=== PATIENT | female | born 1955 | race Caucasian/White ===

== ENCOUNTER 2017-11-28 01:11 | Outpatient (CLI) | payer OTHER, SELFPAY ==
--- NOTE | 2017-11-28 09:15 | DI.MAMMO_ITS ---
SYMPTOM/DIAGNOSIS: SCREENING, [facility], Z00.00 MAMMOGRAMS: Mammograms were interpreted according to the usual protocol including computer analysis with CAD system, tomosynthesis and C view imaging. Comparison is made with prior examinations. Breast density, B. There is asymmetric breast tissue in the outer right breast seen on the craniocaudad view. This area should be further evaluated with a spot compression view. Ultrasound may be indicated at that time. No suspicious masses or microcalcifications are seen in the left breast. The skin and axilla are unremarkable. IMPRESSION: Additional views of the right breast as described above. Category 0. MQSA ASSESSMENT OF FINDINGS: Incomplete: Needs additional imaging evaluation. Category 0. Patient will receive a letter notifying them of these results. BI-RADS category B. There are scattered areas of fibroglandular density.
== END 2017-11-28 01:31 ==
PROVIDERS: PCP Family Medicine; Visit Provider Family Medicine
DX: Z00.00 Encounter for general adult medical examination without abnormal findings (principal); Z12.31 Encounter for screening mammogram for malignant neoplasm of breast; R92.8 Other abnormal and inconclusive findings on diagnostic imaging of breast
CPT/HCPCS: 77063; 77067

== ENCOUNTER 2017-12-10 00:50 | Outpatient (CLI) | payer OTHER, SELFPAY ==
--- NOTE | 2017-12-10 09:40 | DI.COMBO_ITS ---
SYMPTOM/DIAGNOSIS: F/U ASYMMETRIC BREAST TISSUE ON MAMMOGRAM RIGHT BREAST ADDITIONAL VIEWS AND RIGHT BREAST ULTRASOUND: Additional images are interpreted according to the usual protocol including tomosynthesis and 2D imaging. The compression spot film reveals no definite evidence of a mass. At ultrasound, no cyst or mass is seen. SUMMARY: No mass is identified. Category 1. Annual screening mammography is recommended. Breast density, Category B. MQSA ASSESSMENT OF FINDINGS: Negative. Category 1. Patient will receive a letter notifying them of these results. BI-RADS category B. There are scattered areas of fibroglandular density.
== END 2017-12-10 01:10 ==
PROVIDERS: PCP Family Medicine; Visit Provider Family Medicine
DX: Z12.31 Encounter for screening mammogram for malignant neoplasm of breast (principal); R92.8 Other abnormal and inconclusive findings on diagnostic imaging of breast; N64.59 Other signs and symptoms in breast
CPT/HCPCS: 76642; 77063; 77067

== ENCOUNTER 2018-03-20 10:15 | Outpatient (CLI) | payer OTHER, SELFPAY ==
--- NOTE | 2018-03-20 13:04 | DI.RAD_ITS ---
SYMPTOMS/DIAGNOSIS: UPPER BACK PAIN, M54.9, TINGLING DOWN BOTH ARMS AND SOME IN LEGS CERVICAL SPINE: Odontoid, AP, lateral and bilateral oblique views were obtained. The odontoid is intact. The lateral masses are well aligned. There is straightening of the normal cervical lordosis. This may be due to muscle spasm or patient positioning. At C5-C6, there is mild disc space narrowing. Endplate osteophytes are seen. At C6-C7, there is moderate disc space narrowing and endplate osteophytes are present. There is moderate narrowing of the left neural foramen at C5-C6 and mild narrowing on the left at C6-C7. On the right, there is mild narrowing of the neural foramen at both C5-C6 and C6-C7. No acute fractures or subluxations are seen. There is no prevertebral soft tissue swelling. IMPRESSION: Moderate degenerative changes of the cervical spine.
== END 2018-03-20 10:35 ==
PROVIDERS: PCP Family Medicine; Visit Provider Family Medicine
DX: M54.2 Cervicalgia (principal); M47.812 Spondylosis without myelopathy or radiculopathy, cervical region; R20.2 Paresthesia of skin
CPT/HCPCS: 72050

== ENCOUNTER 2018-03-26 00:47 | Outpatient (CLI) | payer OTHER, SELFPAY ==
--- NOTE | 2018-03-26 08:20 | DI.RAD_ITS ---
SYMPTOM/DIAGNOSIS: RADICULAR SYMPTOMS LOWER LIMBS M54.10 LUMBAR SPINE: There is a mild levoscoliosis centered at L3-4. There is asymmetric disc space narrowing on the right side at L3-4 and L4-5 causing the scoliosis. There is no evidence of compression fracture, spondylolysis or spondylolisthesis. The S-I joints and hip joints are unremarkable. There is a moderate to increased quantity of stool. A calcified uterine fibroid is seen. IMPRESSION: Degenerative disc changes at L3-4 and L4-5. Scoliosis.
== END 2018-03-26 01:07 ==
PROVIDERS: PCP Family Medicine; Visit Provider Family Medicine
DX: M54.16 Radiculopathy, lumbar region (principal); M51.16 Intervertebral disc disorders with radiculopathy, lumbar region; M41.86 Other forms of scoliosis, lumbar region
CPT/HCPCS: 72110

== ENCOUNTER 2018-04-16 00:17 | Outpatient (CLI) | payer OTHER, SELFPAY ==
[2018-04-16 14:50] LABS: CREATININE 0.82 mg/dL (0.55-1.02)
[2018-04-16] MEDS: Gadoterate meglumine 20 ML VIAL 15 ML IVP (15:21)
--- NOTE | 2018-04-16 15:33 | DI.MRI_ITS ---
SYMPTOM/DIAGNOSIS: PARESTHESIA HANDS, R20.2, FACIAL PARESTHESIA RT BRAIN MRI: MRI examination of the brain was performed according to the usual protocol. Additional post contrast axial and coronal T 1 weighted imaging was obtained as well. There is no mass lesion or enhancing lesion in the brain. There are a few scattered focal areas of abnormal signal in periventricular and subcortical white matter consistent with minimal microvascular ischemic changes. No other significant signal abnormality identified in the brain. The orbital and temporal bone structures appear intact as does the pituitary. There is normal flow void in the [place] vasculature. Diffusion weighted imaging shows no evidence of infarction. Susceptibility weighted imaging shows no evidence of intracranial hemorrhage. CONCLUSION: Brain MRI normal for age.
== END 2018-04-16 00:37 ==
PROVIDERS: PCP Family Medicine; Visit Provider Family Medicine
DX: R20.2 Paresthesia of skin (principal); M54.10 Radiculopathy, site unspecified
CPT/HCPCS: 36415; 70553; 82565

== ENCOUNTER 2018-06-18 08:13 | Outpatient (CLI) | payer OTHER, SELFPAY ==
[2018-06-18 11:46] LABS: HCT 41.7 % (36.0-46.0); HGB 14.1 g/dL (12.0-15.5); Mean Corp. HGB Concentration 33.8 g/dL (32.0-36.0); Mean Corpuscular Hemoglobin 30.3 pg (27.0-33.0); Mean Corpuscular Volume 89.7 fL (80-95); Mean Platelet Volume 10.3 fL (8.0-11.0); Platelet Count 264 x1000/uL (130-400); RBC 4.65 m/cumm (4.00-5.20); RBC Distribution Width 12.9 % (11.7-14.6); White Blood Cell Count 3.77 k/cumm (4.4-10.8)
[2018-06-18 12:11] LABS: Glucose 89 mg/dL (70-100); TSH (W/Ref FT4) 3.36 uIU/mL (0.358-3.74); Vitamin B12 617 pg/mL (193-986)
== END 2018-06-18 08:33 ==
PROVIDERS: PCP Family Medicine; Visit Provider Family Medicine
DX: R20.2 Paresthesia of skin (principal); D72.819 Decreased white blood cell count, unspecified
CPT/HCPCS: 36415; 82947; 85027; 82607; 84443

== ENCOUNTER 2018-07-02 09:35 | Outpatient (REF) | payer OTHER, SELFPAY ==
[2018-07-02 22:12] LABS: Absolute Basophil Count 0.04 k/cumm (0.0-0.2); Absolute Lymphocyte Count 1.22 k/cumm (1.2-3.4); Absolute Neutrophil Count 2.38 k/cumm (1.2-6.7); Eosinophils % 2.5; HCT 42.1 % (36.0-46.0); HGB 14.5 g/dL (12.0-15.5); Lymphocytes % 30.2; Mean Corp. HGB Concentration 34.4 g/dL (32.0-36.0); Mean Corpuscular Hemoglobin 30.7 pg (27.0-33.0); Mean Platelet Volume 10.5 fL (8.0-11.0); Monocytes % 7.4; Neutrophils % 58.9; Platelet Count 238 x1000/uL (130-400); RBC 4.73 m/cumm (4.00-5.20); RBC Distribution Width 12.7 % (11.7-14.6); White Blood Cell Count 4.04 k/cumm (4.4-10.8)
[2018-07-02 22:57] LABS: Folate > 20.0 ng/mL (8.6-20.0)
[2018-07-07 09:14] LABS: Methylmalonic Acid 0.21 nmol/mL (<=0.40)
== END 2018-07-02 09:55 ==
LOC: NCHCN 09:35
PROVIDERS: PCP Family Medicine; Visit Provider Family Medicine
DX: D72.819 Decreased white blood cell count, unspecified (principal); G62.9 Polyneuropathy, unspecified
CPT/HCPCS: 80186; 82746; 85025

== ENCOUNTER 2018-07-05 07:00 | Outpatient (REF) | payer OTHER, SELFPAY ==
[2018-07-09 10:58] LABS: Copper 24 Hr, U 53 mcg/24 h (<=60); Urine Volume 2000 mL
== END 2018-07-05 07:20 ==
LOC: NCHCN 07:00
PROVIDERS: PCP Family Medicine; Visit Provider Family Medicine
DX: D72.819 Decreased white blood cell count, unspecified (principal); G62.9 Polyneuropathy, unspecified
CPT/HCPCS: 81050; 82525

== ENCOUNTER 2018-12-14 00:40 | Outpatient (CLI) | payer OTHER, SELFPAY ==
--- NOTE | 2018-12-14 09:06 | DI.MAMMO_ITS ---
EXAM: MAMMO SCREENING CLINICAL HISTORY: SCREENING, [facility], Z00.00. TECHNIQUE: Mammograms were interpreted according to the usual protocol including computer analysis w [employer] system, tomosynthesis and C-view imaging. FINDINGS: The breast tissue is of moderate radiodensity. There is no evidence of a mass and there are no suspi cious calcifications. There has been no significant interval change when compared with prior images. IMPRESSION: No evidence of malignancy. Category 1. Annual screening mammography is recommended. Breast density, c ategory B. BI-RADS Cat 1 - Negative. Breast Density - Category B - Scattered areas of fibroglandular density.
== END 2018-12-14 01:00 ==
PROVIDERS: PCP Family Medicine; Visit Provider Family Medicine
DX: Z00.00 Encounter for general adult medical examination without abnormal findings (principal); Z12.31 Encounter for screening mammogram for malignant neoplasm of breast
CPT/HCPCS: 77063; 77067

== ENCOUNTER 2019-02-09 11:50 | Outpatient (REF) | payer OTHER, SELFPAY ==
--- NOTE | 2019-02-09 09:45 | PAPFT_PTH ---
PATIENT: Amanda Rudolph LOC: [facility] U#:[id number] AGE/SX: 63/F ROOM: RE02/09/[address]: Johana Orona V : 1955 BED: DIS: 02/09/2019 SPEC #: [id number] RECD: 02/10/19 12:51 STATUS: HANSA REDana #: [id number] BATSHEVA: 02/09/19 09:[address]: Johana Orona V DEPT: [facility] Cytology RECD BY: Sherin Esposito Tissues: 1 - CX/ENDOCX FOR PAP SMEARS Procedures: PAP THIN PREP/[facility] Screening HPV DNA PROBE Comments: [id number]
== END 2019-02-09 12:10 ==
LOC: NCHCN 11:50
PROVIDERS: PCP Family Medicine; Visit Provider Family Medicine
DX: Z12.4 Encounter for screening for malignant neoplasm of cervix (principal); Z01.419 Encounter for gynecological examination (general) (routine) without abnormal findings
CPT/HCPCS: 88142; 87624

== ENCOUNTER 2021-02-15 15:33 | Outpatient (REF) | payer OTHER, SELFPAY ==
[2021-02-15 19:35] LABS: HCT 39.4 % (36.0-46.0); HGB 12.7 g/dL (11.2-15.7); MCH 28.5 pg (27.0-33.0); MCHC 32.2 % (32.0-36.0); MCV 88.3 fL (80-95); MPV 10.2 fL (8.0-11.0); Platelet Count 291 10^3/uL (130-400); RBC 4.46 10^6/uL (3.93-5.22); RDW 12.7 % (11.7-14.6); WBC 4.09 10^3/uL (4.4-10.8)
[2021-02-15 19:55] LABS: Anion Gap 7.3 mmol/L (3-11); BUN 18 mg/dL (7-18); CO2 29.7 mmol/L (21.0-32.0); CREATININE 0.9 mg/dL (0.55-1.02); Calcium 8.9 mg/dL (8.5-10.1); Calculated LDL 93 mg/dL (<100); Chloride 104 mmol/L (98-107); Cholesterol 197 mg/dL (<200); Glucose 77 mg/dL (74-106); HDL Cholesterol 90 mg/dL (40-60); Potassium 4.3 mmol/L (3.5-5.1); Sodium 141 mmol/L (136-145); TSH (W/Ref FT4) 2.08 uIU/mL (0.36-3.74); Triglyceride 73 mg/dL (<150)
== END 2021-02-15 15:34 | disposition home or self-care (01) ==
LOC: NCHCN 15:33
PROVIDERS: PCP Family Medicine; Visit Provider Family Medicine
DX: Z00.00 Encounter for general adult medical examination without abnormal findings (principal)
CPT/HCPCS: 80048; 80061; 85027; 84443

== ENCOUNTER 2021-03-16 01:10 | Outpatient (CLI) | payer OTHER, SELFPAY ==
--- NOTE | 2021-03-16 08:25 | DI.MAMMO_ITS ---
Exam(s) MAMMO SCREENING EXAM: MAMMO SCREENING CLINICAL HISTORY: SCREENING, [facility], Z00.00 TECHNIQUE: Mammograms were interpreted according to the usual protocol including computer analysis w [employer]o CAD system, tomosynthesis and C-view imaging. COMPARISON: 2012 through 2018 FINDINGS: The breasts are composed of scattered fibroglandular densities, Breast Density category B. No suspicious masses or suspicious microcalcifications are seen. No skin thickening or abnormal axillary lymph nodes are seen. There has been no significant change from prior exams. IMPRESSION: BI-RADS Category 1, Negative mammogram Yearly screening mammography is recommended. Breast Density - Category B, scattered fibroglandular densities. A negative radiographic report should not delay biopsy if a dominant or clinically suspicious mass is present. Up to ten percent of cancers are not identified on mammography. A negative report may reinforce clinical impression. Adenosis and dense breasts may obscure an underlying neoplasm. False positive reports average 6 to 10%. Patient will receive a letter notifying them of these results.
--- NOTE | 2021-03-16 08:30 | DI.DEXA_ITS ---
Exam(s) XR DEXA BONE DENSITY W/WO CONNOR EXAM: XR DEXA BONE DENSITY W/WO CONNOR CLINICAL HISTORY: [facility] Z00.00,screening for osteoporosis postmenopausal,z78.0 TECHNIQUE: idemama C densitometer COMPARISON: 2003 through 2016 FINDINGS: Lateral view of the thoracic and lumbar spine shows no evidence of compression fractures. Bone mineral density measurements of the lumbar spine correspond to a total T-score of -0.2, in the normal range. This is not changed from 2017. This is a 3.9 percent decrease in total bone density c ompared to 2003. Bone mineral density measurements of the left hip correspond to a total T-score of -1.4. The femora l neck T-score is -1.8, in the osteopenic range. This represents a 2.5 percent decrease from 2016. 10.2 percent decrease compared to 2003.. The left forearm bone mineral density measurements correspond to a T-score of the distal 3rd of -0.8, in the normal range. This represents a 4.6 percent decrease from 2017 and a 5.6 percent decrease fr om 2013. . IMPRESSION: Normal bone mineral density of the lumbar spine and left forearm. Osteopenia the left hip
--- NOTE | 2021-03-16 09:00 | DI.RAD_ITS ---
Exam(s) XR SHOULDER RT COMPLETE 2+V EXAM: XR SHOULDER RT COMPLETE 2+V CLINICAL HISTORY: RT SHOULDER PAIN, M25.511. TECHNIQUE: 2D digital imaging was performed. COMPARISON: MR MRI - L UPPER JOINT WO CONT from 04/07/2015 FINDINGS: BONES: No acute fracture is present. No bony destructive lesion is seen. JOINTS: No dislocation present. Minimal spurring at the glenoid. Minimal spurring at the AC joint. SOFT TISSUE: Normal. IMPRESSION: Mild degenerative changes. DATA REPOSITORY: RADIATION DOSE DELIVERED:
== END 2021-03-16 01:30 ==
PROVIDERS: PCP Family Medicine; Visit Provider Family Medicine
DX: M25.511 Pain in right shoulder (principal); M19.011 Primary osteoarthritis, right shoulder; Z00.00 Encounter for general adult medical examination without abnormal findings; M85.88 Other specified disorders of bone density and structure, other site; Z78.0 Asymptomatic menopausal state; Z12.31 Encounter for screening mammogram for malignant neoplasm of breast
CPT/HCPCS: 77063; 77067; 77080; 73030

== ENCOUNTER 2021-05-12 14:39 | Outpatient (REF) | payer OTHER, SELFPAY ==
--- NOTE | 2021-05-12 | DI.RAD_ITS ---
Exam(s) XR KNEE LT 3V AP,LAT,LEX EXAM: XR KNEE LT 3V AP,LAT,LEX CLINICAL HISTORY: LEFT KNEE PAIN. TECHNIQUE: 2D digital imaging was performed. COMPARISON: Prior x-rays March 2014 FINDINGS: 3 views There is no evidence of fracture nor obvious joint effusion. Bone density is normal. No osseous les ions. However, on the tunnel view there is a subtle subarticular lucency in the medial femoral condy le. Cannot exclude the possibility of an osteochondral defect at this level. There is no joint spac e narrowing. No osteophytes. IMPRESSION: No fractures nor obvious joint effusion. Possible small osteochondral defect on the inferior articular surface of the medial femoral condyle. DATA REPOSITORY: RADIATION DOSE DELIVERED:
--- NOTE | 2021-05-12 15:24 | DI.VRAD_ITS ---
PROCEDURE INFORMATION: Exam: XR Left Knee Exam date and time: 05/12/2021 2:42 PM Age: 66 years old Clinical indication: Pain; Knee; Left TECHNIQUE: Imaging protocol: XR Left knee. Views: 3 views. COMPARISON: No relevant prior studies available. FINDINGS: Bones/joints: Osseous anatomic alignment is well preserved. No acutely displaced fracture or dislocation. Joint spaces are well preserved. Small marginal osteophytes appreciated in the bilateral tibiofemoral compartment and patellofemoral compartment. There is no evidence of a joint effusion. Soft tissues: There is no significant soft tissue swelling. IMPRESSION: 1. Minimal tricompartmental osteoarthritis. 2. No acute skeletal pathology. Dictated and Authenticated by: Ruel Martin MD. Ordering:IHSAN Whitlock MD
== END 2021-05-12 14:59 ==
LOC: DI 14:39
PROVIDERS: PCP Family Medicine; Visit Provider Nurse Practitioner Family
DX: M25.562 Pain in left knee (principal); M17.12 Unilateral primary osteoarthritis, left knee
CPT/HCPCS: 73562

== ENCOUNTER 2022-03-22 00:16 | Outpatient (CLI) | payer OTHER, SELFPAY ==
--- NOTE | 2022-03-22 | DI.MAMMO_ITS ---
Exam(s) MAMMO SCREENING EXAM: MAMMO SCREENING CLINICAL HISTORY: SCREENING, Z12.31 TECHNIQUE: Bilateral full field digital CC and MLO mammographic images were obtained with 3D tomosyn thesis and utilizing computer aided detection (CAD). COMPARISON: Available for comparison. FINDINGS: Masses/Architectural Distortion: None seen. Microcalcifications: No suspicious pleomorphic-type are seen. Skin Thickening/Nipple Retraction: None. IMPRESSION: 1. No significant interval change with no specific features of malignancy noted. 2. Unless there is more urgent need, screening mammography is recommended, as per [employer] guidelines. BI-RADS Category 1 - Negative Breast Density - Category B - Scattered areas of fibroglandular density Breast density category C or D implies that the patient has dense breast tissue. Dense breast tissue is very common and is not abnormal but dense breast tissue can make it harder to find cancer on a ma mmogram. Also, dense breast tissue may increase their breast cancer risk. This information about the result of the mammogram report was provided to the patient to raise their awareness. Use this report when you speak with the patient about their risks for breast cancer, which includes their family hist ory. At that time, you may recommend for more screening tests (Ultrasound or MRI) as they might be us eful based on their risk. A negative radiographic report should not delay biopsy if a dominant or clinically suspicious mass is present. Up to ten percent of cancers are not identified on mammography. A negative report may reinforce clinical impression. Adenosis and dense breasts may obscure an underlying neoplasm. False positive reports average 6 to 10%. Patient will receive a letter notifying them of these results.
== END 2022-03-22 00:36 ==
LOC: DI 00:18
PROVIDERS: PCP Family Medicine; Visit Provider Family Medicine
DX: Z12.31 Encounter for screening mammogram for malignant neoplasm of breast (principal)
CPT/HCPCS: 77063; 77067

== ENCOUNTER → 2022-12-26 10:55 | Outpatient (BNVA) | payer MEDICARE, SELFPAY | PROVIDERS: PCP Family Medicine; Referring Provider Family Medicine; Visit Provider Physical Therapy Assistant | DX: Z12.11 Encounter for screening for malignant neoplasm of colon (principal); Z86.010 Personal history of colon polyps ==

== ENCOUNTER 2023-01-09 06:16 | Day surgery (SDC) | payer MEDICARE, SELFPAY ==
--- NOTE | 2023-01-08 14:04 | W.PM.DSUDISC ---
Date of service: 01/09/23 Time of Service: 08:02 Discharge Plan Disposition Patient Disposition: Home Condition: Good Discharge Details Reason For Visit: Screening colonoscopy Attending Provider: Jonathan Das Primary Care Provider: Johana Orona V Home Meds and New Rx's Prescriptions: Continued triamcinolone acetonide 0.025 % cream 1 applic TP BID calcitriol 3 mcg/gram ointment 1 applic topical BID osteoprime 1 tab PO DAILY ibuprofen [Advil Liqui-Gel] 200 MG capsule 400 mg PO Q4H PRN Discontinued bisacodyl [Dulcolax (bisacodyl)] 5 mg tablet,delayed release (DR/EC) 5 mg PO ONCE Qty: 4 0RF Rx Instructions: Take per colonoscopy instructions provided by ordering providers office polyethylene glycol 3350 17 gram/dose powder 17 g PO ONCE Qty: 238 0RF Rx Instructions: Take per colonoscopy instructions provided by ordering providers office Discharge Instructions Instructions: Diverticulosis (GEN), Colorectal Polyps (GEN), Diverticulosis Diet (GEN) Additional Instructions: Amanda, we were able to complete your colonoscopy today without any difficulty. Your prep was excellent. I did find 1 small polyp, and I removed it completely. Incidentally, I also found some diverticulosis. These are weak spots in the colon wall that many patients accumulate with age. I have attached some general information here regarding management of diverticular disease. I will be in touch when I have the results of the polyp analysis with my recommendations for your next colonoscopy. 1. If tolerated, consume a soft, low fiber diet for 1-2 days. 2. Do not drive, drink alcohol, operate machinery, make critical decisions, or do activities that require coordination or balance for 24 hours. 3. Because air was put into your colon during the procedure, expelling air from your rectum (passing gas or farting) is normal. 4. You may not have a bowel movement for 1-3 days because of the colonoscopy prep. This is normal. 5. Go directly to the emergency room if you notice any of the following: Develop chills (warm to touch), or if you have a thermometer and your temperature is above 101 Difficulty breathing or difficultly swallowing Persistent vomiting Severe abdominal pain, other than gas cramps Severe chest pain Black, tarry stools Any bleeding ? exceeding one tablespoon 6. Call your physician if the site where your intravenous was started becomes red, swollen, painful, and warm to touch. 7. Your physician has reviewed your pre-procedure medications. Please continue to take those medications as previously ordered. You will be given specific information/education regarding any changes to your medications before leaving. Activity:: Activity as Tolerated Diet:: As Tolerated Discharge Orders Discharge Orders: Discharge Order (Routine); Ordered 01/08/23 Ordered By: Jonathan Das DS: Diagnosis Discharge Diagnosis (1) Screen for colon cancer: Status: Acute Asessment and Plan: Follow-up on polypectomy results
--- NOTE | 2023-01-08 14:06 | W.COLOREPORT ---
Date of service: 01/09/23 Time of Service: 08:04 Colonoscopy Report Date of procedure: 01/09/23 Pre-op diagnosis general: Screening colonoscopy Post-op diagnosis procedure note: other (Diverticulosis, colon polyp) Procedure: Colonoscopy with polypectomy Surgeon: Jonathan Das Anesthesia Type: General:No Airway Estimated blood loss (mL): 5 Pathology: other (0.25 cm polyp at 60 cm from the anus) Complications: None Disposition: same day Indications: Amanda is a 67-year-old woman with a past history of adenomatous polyps, who needs her next screening colonoscopy Prep: Miralax/Dulcolax Procedure Start Time: 07:35 Procedure End Time: 07:52 Retraction Time: 14 Findings: Sigmoid diverticulosis; colon polyp at 60 cm Procedure Description: After the induction of monitored anesthetic care, and with the patient in left lateral decubitus position, I began by performing an external anorectal exam.? Perineum and skin were normal, as was the anal verge.? There was no not evidence of external hemorrhoids.? Next, I performed a digital rectal exam.? I did appreciate any abnormal findings.? Next, I advanced a colonoscope into the rectal vault.? I performed retroflexion.? This was normal.? Using insufflation, I then advanced the colonoscope beyond the rectal folds and into the sigmoid colon before advancing towards the cecum.? There was some sigmoid diverticulosis.? The scope was noted to be in the cecum by identification of the ileocecal valve and appendiceal orifice.? I then began withdrawing the colonoscope using repeated irrigation as necessary for full evaluation of the colonic mucosa. Around 60 cm from the anal verge I identified a 0.25 cm polyp. ?It appeared sessile in character. ?I was able to remove this with a cold forcep polypectomy. ?I examined the site, and there was minimal bleeding. ?Once this was completed, I continued to withdraw the scope and examine the remainder of the colonic mucosa. ?Once the scope was withdrawn to the level of the rectum, great care was taken to examine portions of the rectal folds.? Finally, the scope was withdrawn and the patient was brought to the same-day surgery recovery unit as the anesthetic wore off. ?The findings and instructions were shared with the patient prior to discharge. [place] Bowel Prep [place] Bowel Prep Right Colon: 3 Left Colon: 3 Transverse Colon: 3 Total Score: 9
[2023-01-09 06:30] VITALS: BP 109/84; PULSE 76; RESP 16; TEMP 36.5; O2SAT 99
[2023-01-09] MEDS: Lactated Ringers 1,000 ML 80 ML IV (06:53)
--- NOTE | 2023-01-09 06:58 | W.ANESPRE ---
General Info Date of Service Date Performed: 01/09/23 Height: 5 ft 10.5 in Weight: 70.7 kg Body Mass Index (BMI): 22.0 Surgical Procedure: Operation Date: 01/09/23 07:35 Proposed Procedure Side Surgeon maicol Das MD Meds Allergies and Home Medications Allergies Allergy/AdvReac Type Severity Reaction Status Date / Time acetaminophen Allergy Verified 01/09/23 06:43 Home Medication Medication Instructions Recorded Osteoprime 1 tab PO DAILY 11/09/12 ibuprofen 200 mg capsule (Advil 400 mg PO Q4H PRN 05/22/15 Liqui-Gel) triamcinolone acetonide 0.025 % 1 applic topical BID 03/31/18 topical cream calcitriol 3 mcg/gram topical 1 applic topical BID 12/26/22 ointment Current Visit Medications: Current Medications Generic Name Dose Route Start Last Admin Trade Name Freq PRN Reason Stop Dose Admin Hyoscyamine Sulfate 0.125 mg 01/08/23 14:06 Hyoscyamine 0.125 Mg Sl/Oral/Chew SL 02/07/23 14:05 DIRECTED PRN Ringer's Solution 1,000 mls @ 80 mls/hr 01/09/23 06:00 01/09/23 06:53 IV 01/23/23 23:59 80 mls/hr INFUSION KIM Administration IV Miscellaneous Supplies 1 each 01/09/23 06:00 Iv Access IV 01/23/23 23:59 DIRECTED KIM Ondansetron HCl 4 mg 01/08/23 14:06 Ondansetron 4 Mg/2 Ml Vial IVP 02/07/23 14:05 Q4H PRN PRN Nausea / Vomiting Sodium Chloride 0 ml 01/09/23 06:00 Normal Saline Flush 10 Ml Syr IV 01/23/23 23:59 PRN PRN Sodium Chloride 0 ml 01/09/23 06:00 Normal Saline 10 Ml Vial IJ 01/23/23 23:59 DIRECTED PRN Sterile Water 0 ml 01/09/23 06:00 Water,Injection,Sterile 10 Ml Vial IJ 01/23/23 23:59 DIRECTED PRN PFSH Active Problems Active Problems: Problem Status Onset Code Primary osteoarthritis of both first carpometacarpal joints 06/04/17 M18.0 Tendinitis of left rotator cuff 01/18/15 M75.82 Tubular adenoma of colon 03/03/17 D12.6 Medical History Medical History Knee pain, bilateral Peripheral neuropathy Leucopenia Rotator cuff syndrome of left shoulder Menopausal syndrome [place] of toe Heart murmur, systolic PCP had ECHO in 2016. Pt was reminded that due to mild TR and MR per anesthesia will request updated ECHO for any upcoming procedures (01/08/23) Psoriasiform dermatitis Shoulder pain, right Back pain Radicular syndrome of lower limbs Paresthesia of hand, bilateral tubulovillous adenoma irregular heart beat diverticulosis Small bowel obstruction Osteopenia Surgical History Surgical History Tonsillectomy Colonoscopy - MAC (03/03/17) Colonoscopy - IV Sedation (~2010) tubulovillous adenoma Appendectomy Tobacco Smoking/Tobacco Use Status: Former Tobacco Use Alcohol Alcohol Intake: current Alcohol intake frequency: 0-2 drinks per day Alcohol type: wine Substance Use Substance use: Never Substance use type: does not use Vital Signs and Lab Results Vital Signs Most Recent Vital Signs in EMR: Most Recent Vital Signs Temp Pulse Resp BP Pulse Ox 36.5 C 76 16 109/84 99 01/09/23 06:30 01/09/23 06:30 01/09/23 06:30 01/09/23 06:30 01/09/23 06:30 Lab Results Blood Type / Crossmatch: No Data to Display Complete Blood Count: No Data to Display Complete Metabolic Panel: No Data to Display Liver Function Panel: No Data to Display Coagulation Panel: No Data to Display Cardiac Panel: No Data to Display Arterial Blood Gas: No Data to Display Venous Blood Gas: No Data to Display Pancreas Panel: No Data to Display Thyroid Panel: No Data to Display Infectious Disease: No Data to Display Blood Cultures: No Data to Display Toxicology Panel: No Data to Display Imaging and Studies Imaging and Studies Study information below may be from another EMR and interpreted by another provider. Please see original notes in EMR for more complete details. Echocardiogram Summary: Patient Name: BETH JUAREZ Unit #: [id number] Loc: DI Ordering Provider: JOHANA SINGER M.D. Status: REG [facility] Primary Care Provider: JOHANA SINGER M.D. Date of Exam: 11/03/15 Sex: F : 1955 Age: 60 Exam(s) [id number] US:Echocardiogram Heart *[facility]* *[facility]* [address] [place] [address] Date of study: 11/03/2015 Transthoracic Echocardiography M-mode, complete 2D, complete spectral Doppler, and color Doppler *STUDY CONCLUSIONS* Summary: 1. Left ventricle: The cavity size was normal. Wall thickness was normal. Systolic function was normal. The estimated ejection fraction was 60%. Wall motion was normal; there were no regional wall motion abnormalities. 2. Aortic valve: Trileaflet; normal thickness leaflets. Transvalvular velocity was within the normal range. There was no stenosis. There was no significant regurgitation. 3. Mitral valve: Moderately thickened leaflets. No echocardiographic evidence for prolapse. There was mild regurgitation. 4. Left atrium: The atrium was normal in size. 5. Right ventricle: The cavity size was normal. Wall thickness was normal. Systolic function was normal. 6. Tricuspid valve: Structurally normal valve. There was mild regurgitation. 7. Pulmonary arteries: Pulmonary systolic pressure was within the normal range. 8. Pericardium, extracardiac: There was no pericardial effusion. 9. Baseline ECG: Normal sinus rhythm. *PATIENT PRESENTATION* Height: 180.3cm ((71in) ) S/D Pressure: Weight: 70.3kg ((154.7lb) ) BSA: 1.87m^2 Test start time: 11:05 AM. Test stop time: 12:10 PM. ORDERING Ankush Velázquez MD REFERRING Johana Singer PERFORMING Unknown PERFORMING [facility] PERFORMING Corrina Mascorro *PROCEDURE DATA* Procedure information: [id number] This study was interpreted by [facility]. Pertinent images and digital data are archived for permanent storage and are available for subsequent review. Study status: Routine. Transthoracic echocardiography. M-mode, complete 2D, complete spectral Doppler, and color Doppler. A Transthoracic Echocardiogram was performed. Scanning was performed from the parasternal, apical, subcostal, and suprasternal notch acoustic windows. Images were obtained using an Fusion Sheep cardiac ultrasound machine. Study completion: The patient tolerated the procedure well. History: PMH: Heart murmur. *CARDIAC ANATOMY* Left ventricle: The cavity size was normal. Wall thickness was normal. Systolic function was normal. The estimated ejection fraction was 60%. Wall motion was normal; there were no regional wall motion abnormalities. Aortic valve: Trileaflet; normal thickness leaflets. Mobility was not restricted. Doppler: Transvalvular velocity was within the normal range. There was no stenosis. There was no significant regurgitation. VTI ratio of LVOT to aortic valve: 0.62. Indexed valve area (VTI): 1.1cm^2/m^2. Peak velocity ratio of LVOT to aortic valve: 0.66. Indexed valve area (Vmax): 1.1cm^2/m^2. Mean gradient (S): 3mm Hg. Aorta: Aortic root: The aortic root was normal in size. Mitral valve: Moderately thickened leaflets. No echocardiographic evidence for prolapse. Doppler: There was mild regurgitation. Valve area by pressure half-time: 3.1cm^2. Indexed valve area by pressure half-time: 1.7cm^2/m^2. Left atrium: The atrium was normal in size. Right ventricle: The cavity size was normal. Wall thickness was normal. Systolic function was normal. Pulmonic valve: Doppler: Transvalvular velocity was within the normal range. There was no evidence for stenosis. There was no regurgitation. Tricuspid valve: Structurally normal valve. Doppler: There was mild regurgitation. Pulmonary artery: Pulmonary systolic pressure was within the normal range. Right atrium: The atrium was normal in size. Pericardium: There was no pericardial effusion. Systemic veins: Inferior vena cava: The vessel was normal in size. The respirophasic diameter changes were in the normal range (greater than or equal to 50%). Baseline ECG: Normal sinus rhythm. Measurements Left ventricle Value Reference LV ID, ED, PLAX 4.5 cm 3.5 - 6.0 LV fx shortening, PLAX chordal (L) 28 % >=29 LV ID, ED, PLAX maximal (L) 0.8 cm 3.6 - 5.4 LV end-diastolic volume 90 ml LV end-systolic volume 41 ml LV ejection fraction 55 % LV ejection fraction, 1-p A2C 71 % LV ejection fraction, 2-p 63 % Ventricular septum Value Reference IVS thickness, ED, PLAX 0.9 cm LVOT Value Reference LVOT ID, A-P 2.0 cm LVOT area 3.2 cm^2 LVOT peak velocity, S 0.83 m/sec LVOT VTI, S 17.1 cm LVOT mean gradient, S 1.2 mm Hg Aortic valve Value Reference Aortic valve peak velocity, S 1.3 m/sec Aortic mean gradient, S 3 mm Hg VTI ratio, LVOT/AV 0.62 Velocity ratio, peak, LVOT/AV 0.66 Aorta Value Reference Aortic root ID, ED 3.3 cm Left atrium Value Reference LA area, ES, A4C 19 cm^2 8.8 - 23.4 LA volume/bsa, ES, 1-p A2C 28 ml/m^2 Mitral valve Value Reference Mitral E-wave peak velocity 0.63 m/sec Mitral A-wave peak velocity 0.35 m/sec Mitral pressure half-time 70 ms Mitral E/A ratio, peak 1.79 Mitral valve area, PHT, DP 3.1 cm^2 Tricuspid valve Value Reference Tricuspid regurg peak velocity 1.8 m/sec Tricuspid peak RV-RA gradient 13.7 mm Hg Right atrium Value Reference RA area, ES, A4C 12 cm^2 8.3 - 19.5 RA volume/bsa, ES, 1-p A4C 13 ml/m^2 Legend: (L) and (H) renetta values outside specified reference range. I have personally reviewed the images and have reviewed and edited the reported findings. Electronically signed by Renetta Wild MD 11/03/2015 12:45 Ordering provider: JOHANA SINGER M.D. CC: This is privileged, confidential information intended only for the provider named. Any use or distribution by any person other than this provider is strictly prohibited. If you receive this report in error, please notify us immediately at [phone] and return the original report to us at the address above. Thank-you. Anesthesia Assessment and Plan Anesthesia History Personal History: No History of Anesthesia Complications Family History: No Family History of Anesthesia Complications Exercise Tolerance Exercise Tolerance: Metabolic Equivalents>4 Pertinent Negatives Pertinent Negatives: No Symptoms of GERD, No Major Cardiovascular Symptoms or Complaints, No Major Pulmonary Symptoms or Complaints and No History of CVA/TIA Cardiac & Pulmonary Exam Cardiac Exam: Heart Murmur Present Pulmonary Exam: Clear Bilateral Breath Sounds Implantable Cardiac Device Does patient have a Pacemaker or an ICD?: No Airway Exam Known Difficult Airway: No Mallampati Class: 2 Mouth Opening: Normal (> 3cm) Thyromental Distance: Less than 3 cm Neck Range of Motion: Full ROM Neck Circumference: Normal Teeth Condition: Normal Dentition and Generalized Poor Dentition ASA Classification ASA Score: ASA 2 Emergency Case?: No NPO Status NPO Status: NPO Clears >2 hours, Solids >8 hours Anesthesia Plan Resuscitation Status: Full Code Anesthesia Technique: General Anesthesia Airway Planned: Natural Airway Monitors Used: Standard Monitors Preoperative Comments:: Discussed cardiac history at length. Discussed that patient will not be able to have any further anesthetics without an updated ECHO.
--- NOTE | 2023-01-09 07:47 | BOWEL_PTH ---
PATIENT: Amanda Rudolph LOC: [facility] U#:[id number] AGE/SX: 67/F ROOM: RE01/09/[address]: Jonathan Das MD : 1955 BED: DIS: 01/09/2023 SPEC #: [id number] RECD: 01/09/23 12:15 STATUS: HANSA RE #: [id number] BATSHEVA: 01/09/23 07:[address]: Jonathan Das DEPT: Surgical Specimen RECD BY: Sherin Esposito ENTERED: 01/09/23 12:15 SP TYPE: Bowel OTHR DR: Johana Orona V Tissues: 1 - BIOPSY BOWEL Procedures: GROSS AND MICRO LEVEL 4 Comments: [id number]
[2023-01-09 07:58] VITALS: BP 97/77; PULSE 61; RESP 18; TEMP 36.5; O2SAT 98
[2023-01-09 08:01] VITALS: BMI 22.0
[2023-01-09 08:28] VITALS: BP 116/74; PULSE 56; RESP 16; TEMP 36.4; O2SAT 99
--- NOTE | 2023-01-09 08:30 | W.ANESPOSTOP ---
Postoperative Evaluation Date, Time and Location Date Performed: 01/09/23 Time Performed: 08:22 Patient Location: Day Surgery Unit Vital Signs Most Recent Imported Vital Signs: Most Recent Vital Signs Temp Pulse Resp BP Pulse Ox 36.5 C 61 18 97/77 L 98 01/09/23 07:58 01/09/23 07:58 01/09/23 07:58 01/09/23 07:58 01/09/23 07:58 Pain Score Most Recent Pain Score: Most Recent Pain Score Pain Level 0 01/09/23 07:58 Assessment Mental Status: Awake (Alert & Oriented to Patient Baseline) Airway and Respiratory Function: Patent airway with normal (patient baseline) respiratory exam Cardiovascular Function: Hemodynamically Stable Hydration Status: Adequately Hydrated Nausea & Vomiting: No Nausea or Vomiting Pain: Pt. Denies Any Pain Peripheral Nerve Block: Patient did not receive a nerve block
== END 2023-01-09 08:55 | disposition home or self-care (01) ==
LOC: SUR 06:16
PROVIDERS: PCP Family Medicine; Visit Provider Surgery
PROC: 0DJD8ZZ Inspection of Lower Intestinal Tract, Via Natural or Artificial Opening Endoscopic (ICD-10-PCS; CPT 45378; principal; 2023-01-09 07:30)
DX: Z12.11 Encounter for screening for malignant neoplasm of colon (principal); Z86.010 Personal history of colon polyps; D12.4 Benign neoplasm of descending colon; K57.30 Diverticulosis of large intestine without perforation or abscess without bleeding
CPT/HCPCS: 45380; 88305

== ENCOUNTER 2023-03-27 12:54 | Outpatient (REF) | payer MEDICARE, SELFPAY ==
[2023-03-27 15:46] LABS: HCT 43.5 % (36.0-46.0); HGB 14.8 g/dL (11.2-15.7); MCH 29.9 pg (27.0-33.0); MCV 88 fL (80-95); MPV 9.6 fL (8.0-11.0); Platelet Count 300 10^3/uL (130-400); RBC 4.95 10^6/uL (3.93-5.22); RDW 12.6 % (11.7-14.6); RDW-SD 41.1 fL; WBC 4.55 10^3/uL (4.4-10.8)
[2023-03-27 16:13] LABS: Hemoglobin A1C 5.6 % (<5.7)
[2023-03-27 16:28] LABS: Anion Gap 6.4 mmol/L (3-11); BUN 25 mg/dL (7-18); CO2 29.6 mmol/L (21.0-32.0); CREATININE 0.9 mg/dL (0.55-1.02); Calcium 9.4 mg/dL (8.5-10.1); Chloride 106 mmol/L (98-107); Estimated GFR 70.95 (mL/min/1.73m2); Glucose 84 mg/dL (74-106); Potassium 4.3 mmol/L (3.5-5.1); Sodium 142 mmol/L (136-145); TSH 2.26 uIU/mL (0.36-3.74); Vitamin B12 840 pg/mL (193-986)
== END 2023-03-27 12:55 | disposition home or self-care (01) ==
LOC: NCHCN 12:54
PROVIDERS: PCP Family Medicine; Visit Provider Family Medicine
DX: Z00.00 Encounter for general adult medical examination without abnormal findings (principal)
CPT/HCPCS: 80048; 85027; 82607; 83036; 84443

== ENCOUNTER → 2023-04-14 04:10 | Outpatient (CLI) | payer MEDICARE, SELFPAY ==
--- NOTE | 2023-04-14 | DI.MAMMO_ITS ---
Exam(s) MAMMO SCREENING EXAM: MAMMO SCREENING CLINICAL HISTORY: SCREENING, Z12.31 TECHNIQUE: Bilateral full field digital CC and MLO mammographic images were obtained with 3D tomosyn thesis and utilizing computer aided detection (CAD). COMPARISON: Available for comparison. FINDINGS: Masses/Architectural Distortion: None seen. Microcalcifications: No suspicious pleomorphic-type are seen. Skin Thickening/Nipple Retraction: None. IMPRESSION: 1. No significant interval change with no specific features of malignancy noted. 2. Unless there is more urgent need, screening mammography is recommended, as per [employer] guidelines. BI-RADS Category 1 - Negative Breast Density - Category B - Scattered areas of fibroglandular density Breast density category C or D implies that the patient has dense breast tissue. Dense breast tissue is very common and is not abnormal but dense breast tissue can make it harder to find cancer on a ma mmogram. Also, dense breast tissue may increase their breast cancer risk. This information about the result of the mammogram report was provided to the patient to raise their awareness. Use this report when you speak with the patient about their risks for breast cancer, which includes their family hist ory. At that time, you may recommend for more screening tests (Ultrasound or MRI) as they might be us eful based on their risk. A negative radiographic report should not delay biopsy if a dominant or clinically suspicious mass is present. Up to ten percent of cancers are not identified on mammography. A negative report may reinforce clinical impression. Adenosis and dense breasts may obscure an underlying neoplasm. False positive reports average 6 to 10%. Patient will receive a letter notifying them of these results.
== END ==
PROVIDERS: PCP Family Medicine; Visit Provider Family Medicine
DX: Z12.31 Encounter for screening mammogram for malignant neoplasm of breast (principal)
CPT/HCPCS: 77063; 77067

== ENCOUNTER 2023-05-05 03:07 | Outpatient (CLI) | payer MEDICARE, SELFPAY ==
[2023-05-06 12:09] LABS: Albumin 61.1 % (55.8-66.1); Albumin g/dL 4.3 g/dL (3.6-5.2)
[2023-05-08 08:43] LABS: Pyridoxal 5-Phosphate (PLP), P 77 mcg/L (5-50)
[2023-05-09 08:22] LABS: Thiamine (Vitamin B1), WB 184 nmol/L (70-180)
== END 2023-05-05 03:08 | disposition home or self-care (01) ==
LOC: LBO 03:07
PROVIDERS: PCP Family Medicine; Visit Provider Family Medicine
DX: G62.9 Polyneuropathy, unspecified (principal)
CPT/HCPCS: 36415; 84165; 84207; 84425

== ENCOUNTER 2023-08-16 10:00 | Outpatient (REF) | payer MEDICARE, SELFPAY | END 2023-08-16 10:01 | disposition home or self-care (01) | LOC: LBN 10:00 | PROVIDERS: PCP Family Medicine; Visit Provider Physician Assistant Medical | DX: J02.9 Acute pharyngitis, unspecified (principal) | CPT/HCPCS: 87070 ==

== ENCOUNTER 2023-09-03 16:38 | Outpatient (REF) | payer MEDICARE, SELFPAY ==
[2023-09-03 20:04] LABS: Abs Immature Grans 0.01 10^3/uL (0.0-0.06); Absolute Basophil Count 0.07 10^3/uL (0.0-0.2); Absolute Eosinophil Count 0.17 10^3/uL (0.0-0.7); Absolute Lymphocyte Count 1.92 10^3/uL (1.2-3.4); Absolute Monocyte Count 0.37 10^3/uL (0.1-0.8); Absolute Neutrophil Count 3.04 10^3/uL (1.2-6.7); Basophils % 1.3 %; HCT 40.3 % (36.0-46.0); Immature Grans % 0.2 %; Lymphocytes % 34.4 %; MCH 30.2 pg (27.0-33.0); MCHC 34.7 % (32.0-36.0); MCV 87 fL (80-95); MPV 10.3 fL (8.0-11.0); Monocytes % 6.6 %; Neutrophils % 54.5 %; Platelet Count 249 10^3/uL (130-400); RBC 4.63 10^6/uL (3.93-5.22); RDW 12.7 % (11.7-14.6); RDW-SD 40.1 fL; WBC 5.58 10^3/uL (4.4-10.8)
[2023-09-03 20:42] LABS: TSH (W/Ref FT4) 1.51 uIU/mL (0.36-3.74)
[2023-09-09 12:33] LABS: IgA 155 mg/dL (85-499); Interpretation (See Note); Tissue Transglutaminase IgA <4.0 CU (<20.0)
== END 2023-09-03 16:39 | disposition home or self-care (01) ==
LOC: NCHCN 16:38
PROVIDERS: PCP Family Medicine; Visit Provider Nurse Practitioner Family
DX: R19.4 Change in bowel habit (principal); R63.4 Abnormal weight loss
CPT/HCPCS: 82784; 83516; 84443; 85025

== ENCOUNTER 2023-09-09 15:11 | Outpatient (REF) | payer MEDICARE, SELFPAY ==
[2023-09-10 11:33] LABS: Campylobacter PCR Negative (Negative); Salmonella PCR Negative (Negative); Shiga Toxin PCR Negative (Negative); Shigella/Enteroinvasive Ecoli Negative (Negative)
== END 2023-09-09 15:12 | disposition home or self-care (01) ==
LOC: NCHCN 15:11
PROVIDERS: PCP Family Medicine; Visit Provider Nurse Practitioner Family
DX: R19.4 Change in bowel habit (principal); R19.7 Diarrhea, unspecified
CPT/HCPCS: 87329; 87505; 82272; 83630; 87177

== ENCOUNTER 2023-10-07 02:05 | Outpatient (CLI) | payer MEDICARE, SELFPAY ==
--- NOTE | 2023-10-07 06:30 | DI.RAD_ITS ---
Exam(s) XR FOOT LT COMPLETE EXAM: XR FOOT LT COMPLETE CLINICAL HISTORY: Left foot pain,m79.672. TECHNIQUE: 2D digital imaging was performed of the left foot. Three images were obtained. AP, obli que and lateral views were obtained. COMPARISON: CR XR FOOT RT COMPLETE from 10/07/2023 FINDINGS: BONES: No acute fracture is present. No bony destructive lesion is seen. JOINTS: No dislocation present. Minimal joint space narrowing is seen at the 1st tarsometatarsal join t. SOFT TISSUE: Normal. IMPRESSION: No acute fracture. DATA REPOSITORY: RADIATION DOSE DELIVERED:
--- NOTE | 2023-10-07 06:30 | DI.RAD_ITS ---
Exam(s) XR FOOT RT COMPLETE EXAM: XR FOOT RT COMPLETE CLINICAL HISTORY: Right foot pain,m79.671. TECHNIQUE: 2D digital imaging was performed of the right foot. Three images were obtained. AP, obl ique and lateral views were obtained. COMPARISON: No exams were available for comparison FINDINGS: BONES: No acute fracture is present. No bony destructive lesion is seen. JOINTS: No dislocation present. There are mild degenerative changes seen in the foot particularly at the 1st TMT joint. SOFT TISSUE: Normal. IMPRESSION: Mild degenerative changes of the right foot. DATA REPOSITORY: RADIATION DOSE DELIVERED:
== END 2023-10-07 02:25 ==
LOC: DI 02:05
PROVIDERS: PCP Family Medicine; Visit Provider Podiatrist
DX: M79.671 Pain in right foot (principal); M79.672 Pain in left foot
CPT/HCPCS: 73630

== ENCOUNTER 2023-12-05 13:42 | Outpatient (CLI) | payer MEDICARE, SELFPAY ==
--- NOTE | 2023-12-05 | DI.RAD_ITS ---
Exam(s) XR CHEST 2V PA LATERAL EXAM: XR CHEST 2V PA LATERAL CLINICAL HISTORY: COUGH, R05.9. TECHNIQUE: 2D digital imaging was performed. COMPARISON: No exams were available for comparison FINDINGS: 2 views: Heart size is normal. The mediastinum is not widened. Lungs are clear. No infiltrates nor pleural effusions. Mild thoracic scoliosis noted convex right. IMPRESSION: No acute pulmonary findings. DATA REPOSITORY: RADIATION DOSE DELIVERED:
== END 2023-12-05 14:02 ==
PROVIDERS: PCP Family Medicine; Visit Provider Physician Assistant Medical
DX: R05.9 Cough, unspecified (principal)
CPT/HCPCS: 71046

== ENCOUNTER → 2023-12-11 09:09 | Outpatient (BNVA) | payer MEDICARE, SELFPAY | PROVIDERS: PCP Family Medicine; Referring Provider Family Medicine; Visit Provider Student in an Organized Health Care Education/Training Program | DX: M23.92 Unspecified internal derangement of left knee (principal) | CPT/HCPCS: 99214 ==

== ENCOUNTER → 2023-12-19 11:01 | Outpatient (BNVA) | payer MEDICARE, SELFPAY | PROVIDERS: PCP Family Medicine; Referring Provider Family Medicine | DX: M23.92 Unspecified internal derangement of left knee (principal) | CPT/HCPCS: 20610; J1010 ==

== ENCOUNTER 2024-01-28 15:00 | Outpatient (CLI) | payer MEDICARE, SELFPAY ==
--- NOTE | 2024-01-28 08:52 | DI.RAD_ITS ---
Exam(s) XR SHOULDER RT COMPLETE 2+V EXAM: XR SHOULDER RT COMPLETE 2+V CLINICAL HISTORY: RIGHT SHOULDER PAIN. TECHNIQUE: 2D digital imaging was performed. Two views. COMPARISON: CR XR SHOULDER RT COMPLETE 2+V from 03/16/2021 FINDINGS: BONES: No acute fracture is present. No bony destructive lesion is seen. JOINTS: No dislocation present. Glenohumeral joint space is maintained. There is minimal spurring a t the glenoid. SOFT TISSUE: Normal. IMPRESSION: Minimal degenerative changes. DATA REPOSITORY: RADIATION DOSE DELIVERED:
== END 2024-01-28 15:01 | disposition home or self-care (01) ==
LOC: DIORS 15:29
PROVIDERS: PCP Family Medicine; Referring Provider Family Medicine; Visit Provider Student in an Organized Health Care Education/Training Program
DX: M75.101 Unspecified rotator cuff tear or rupture of right shoulder, not specified as traumatic
CPT/HCPCS: 99213; 73030

== ENCOUNTER 2024-02-24 01:26 | Outpatient (CLI) | payer MEDICARE, SELFPAY ==
--- NOTE | 2024-02-24 06:30 | DI.MRI_ITS ---
Exam(s) MR UPPER JOINT RT WO EXAM: MR UPPER JOINT RT WO CLINICAL HISTORY: R SHOULDER PAIN,rt rotator cuff tear,m75.101 TECHNIQUE: Multiplanar multisequence MRI of the shoulder was performed. COMPARISON: MR MRI - L UPPER JOINT WO CONT from 04/07/2015 CR XR SHOULDER RT COMPLETE 2+V from 01/28/2024 FINDINGS: MARROW:There is no evidence of fracture, Hill-Sachs deformity, nor ominous osseous lesions. There are degenerative subarticular cysts in the posterior lateral aspect of the humeral head as well as in th e greater tuberosity of the humeral head. GLENOHUMERAL JOINT: Mild degenerative changes. Some articular cartilage thinning evident. No osteop hytes. There are no degenerative subarticular cysts in the osseous glenoid. There is no joint effus ion or loose intra-articular body evident. ROTATOR CUFF MECHANISM: AC JOINT/ACROMIUM: There are mild degenerative changes in the AC joint. Mildly protruding noted at t his level.. There is no evidence of os acromiale. Supraspinatus: The there is increased signal within the supraspinatus tendon consistent with tendinos is. No evidence of to tear. Some mild edema is noted in the overlying subacromial bursa but without true fluid. Infraspinatus: Mild insertional tendinosis. No high-grade tear. No muscle atrophy. Teres Minor: Intact. No evidence of tear nor muscle atrophy. Subscapularis/anterior cuff: Mild tendinitis signal is noted in the tendon anterior to the lesser tub erosity. No high-grade tear. No muscle atrophy. BICEPS TENDON: Exhibits normal position within the intertubercular groove. No evidence of tear. Minimal fluid noted in the tendon sheath. LABRUM: There is some intrasubstance signal abnormality in the superior labrum posterior to the bicep s insertion site. There does not appear to be fluid signal interposed between the osseous glenoid an d the labrum. Posterior labrum appears intact. Anterior labrum appears intact. Inferior labrum int act. Inferior glenohumeral ligament appears intact QUADRILATERAL SPACE: No evidence of mass in the region of the axillary nerve and dorsal circumflex hu meral vessels. Visualized triceps muscle at this level appears unremarkable. IMPRESSION: 1. There is tendinosis of the supraspinatus tendon as well as the insertional infraspinatus tendon bu t without evidence of full-thickness tears of these tendons nor muscle atrophy. There is mild edema in the subacromial space. 2. There is also mild tendinitis signal evident in the superior aspect of the subscapularis-anterior cuff tendon 3. Increased intrasubstance signal noted within the superior labrum but without fluid interposition b etween the superior labrum and osseous glenoid. This finding is consistent with some degenerative la bral changes at this level. Remainder of the glenoid labrum appears unremarkable and there is no isa dence of biceps tendon tear. DATA REPOSITORY:
--- NOTE | 2024-02-24 06:30 | DI.MRI_ITS ---
Exam(s) MR LOWER JOINT LT WO EXAM: MR LOWER JOINT LT WO CLINICAL HISTORY: L KNEE PAIN,internal derangement lt knee, m23.92 TECHNIQUE: Multiplanar multisequence MRI of the knee was performed. COMPARISON: MR MR KNEE LEFT WO [facility]AST [facility] FINDINGS: EFFUSION: There is a moderate size joint effusion and there is again noted a prominent Garcia cyst in the medial popliteal fossa which is multi-septated and measures 10 cm length x 2 cm AP x 2.5 cm maxim um width MARROW:There is pivot shift bone contusion signal in the posterior aspect of the lateral tibial plate au. No other areas of bone contusion, including the fibular head and neck. There are no significant osseous lesions. PATELLOFEMORAL COMPARTMENT: The quadriceps tendon is intact. The patellar ligament is intact. There is moderate-advanced uniform narrowing of the retropatellar cartilage. This is unchanged from prior MRI scan of 10/22/2022. There are no osteochondral defects nor degenerative cysts in the ramon la at this level.There is no intraosseous signal to suggest recent patellar dislocation. There are no patellar retinacular tears. CRUCIATE LIGAMENTS: The anterior cruciate ligament is intact.The posterior cruciate ligament is intac t. MEDIAL COMPARTMENT/MEDIAL MENISCUS: There is truncation of the medial meniscus which most probably re flects interval surgery the. The the meniscal root appears intact.There are no obvious new tear is o f the medial meniscus. There is no meniscocapsular separation. There is some narrowing of the artic ular cartilage over the main weight-bearing aspect of the medial femoral condyle. No significant sub articular edema nor osteochondral defects. There is a tiny marginal osteophyte seen off the outer as pect of the medial condyle.. MEDIAL COLLATERAL LIGAMENT: Intact LATERAL COMPARTMENT/LATERAL MENISCUS: There appears to be a tearing of the anterior horn of the later al meniscus. Also some regularity of the posterior horn of the lateral meniscus but appearance is si milar to the prior MRI study.There is mild cartilage thinning over the main weight-bearing surface of the lateral femoral condyle. No large chondral defects. No osteochondral defects. Small marginal osteophytes evident. As described above there is also subarticular bone edema/contusion in the poste rior aspect of the lateral femoral condyle. There is no edema in the adjacent fibular head and neck. ILIOTIBIAL BAND: Intact LATERAL COLLATERAL LIGAMENT COMPLEX: The fibular collateral ligament is intact. The biceps femoris t endon is intact.Popliteus muscle and tendon are intact. IMPRESSION: 1. Compared to the prior outside MRI of September 2022 there is new pivot shift bone contusion evident i n the lateral tibial plateau but without evidence of obvious significant ACL tear. PCL is also intac t and there are no collateral ligament tears nor tear of the iliotibial band. 2. Some irregularity of the medial meniscus is noted but appearance is similar to prior MRI of September 2022. Possible interval instrumentation. No obvious new tear of the medial meniscus. 3. Subtle suggestion of some tearing of the anterior horn of the lateral meniscus as well as some reg ularity of the posterior horn but with similar appearance to prior MRI study of September 2022. 4. There are mild degenerative changes in both medial lateral compartments and there is also moderate uniform thinning of the retropatellar cartilage which is unchanged from the MRI of September 2022. 5. Joint effusion and prominent septated garcia cyst again noted. There are no obvious loose intra-a rticular bodies. DATA REPOSITORY:
== END 2024-02-24 01:46 ==
LOC: DI 01:26
PROVIDERS: PCP Family Medicine; Visit Provider Student in an Organized Health Care Education/Training Program
DX: M75.121 Complete rotator cuff tear or rupture of right shoulder, not specified as traumatic (principal); M25.562 Pain in left knee
CPT/HCPCS: 73721; 73221

== ENCOUNTER → 2024-03-01 08:22 | Outpatient (BNVA) | payer MEDICARE, SELFPAY | PROVIDERS: PCP Family Medicine; Referring Provider Family Medicine | DX: M23.92 Unspecified internal derangement of left knee (principal) | CPT/HCPCS: 99213 ==

== ENCOUNTER → 2024-03-02 13:38 | Outpatient (BNVA) | payer MEDICARE, SELFPAY | PROVIDERS: PCP Family Medicine; Referring Provider Family Medicine; Visit Provider Student in an Organized Health Care Education/Training Program | DX: S43.431D Superior glenoid labrum lesion of right shoulder, subsequent encounter (principal); X58.XXXD Exposure to other specified factors, subsequent encounter | CPT/HCPCS: 99213 ==

== ENCOUNTER 2024-05-18 00:51 | Outpatient (CLI) | payer MEDICARE, SELFPAY ==
--- NOTE | 2024-05-18 | DI.MAMMO_ITS ---
Exam(s) MAMMO SCREENING EXAM: MAMMO SCREENING CLINICAL HISTORY: SCREENING, Z12.31. TECHNIQUE: Bilateral full field digital CC and MLO mammographic images were obtained with 3D tomosyn thesis and utilizing computer aided detection (CAD). COMPARISON: Prior mammograms were reviewed. FINDINGS: There has been no significant change in the appearance and distribution of the fibroglandular tissue. There are no new spiculated masses nor malignant appearing microcalcification groups. There is no significant architectural distortion nor skin thickening-retraction. IMPRESSION: No radiographic evidence of malignancy. BI-RADS Category 1 - Negative Breast Density - Category B - Scattered areas of fibroglandular density Breast density Category C or D implies that the patient has dense breast tissue. Dense breast tissue can make it harder to find cancer on a mammogram. Dense breast tissue is also associated with an incr eased risk of breast cancer. This information about the result of the mammogram report was provided to the patient to raise their awareness. Use this report when you speak with the patient about their risks for breast cancer, which includes their family history. At that time, you may recommend additional screening tests (Ultrasoun d or MRI) as these tests may add significant information. A negative radiographic report should not delay biopsy if a dominant or clinically suspicious mass is present. Up to ten percent of cancers are not identified on mammography. A negative report may reinforce clinical impression. Adenosis and dense breasts may obscure an underlying neoplasm. False positive reports average 6 to 10%. Patient will receive a letter notifying them of these results.
== END 2024-05-18 01:11 ==
LOC: DI 00:52
PROVIDERS: PCP Family Medicine; Visit Provider Family Medicine
DX: Z12.31 Encounter for screening mammogram for malignant neoplasm of breast (principal); R92.323 Mammographic fibroglandular density, bilateral breasts
CPT/HCPCS: 77063; 77067

== ENCOUNTER → 2024-09-01 12:56 | Outpatient (BNVA) | payer MEDICARE, SELFPAY | PROVIDERS: PCP Family Medicine; Referring Provider Family Medicine; Visit Provider Podiatrist | DX: M79.671 Pain in right foot (principal); M79.672 Pain in left foot; R25.2 Cramp and spasm; G62.9 Polyneuropathy, unspecified; L84 Corns and callosities; M21.622 Bunionette of left foot; M21.621 Bunionette of right foot; M25.572 Pain in left ankle and joints of left foot; M25.571 Pain in right ankle and joints of right foot | CPT/HCPCS: 99213 ==

== ENCOUNTER → 2024-11-15 14:25 | Outpatient (BNVA) | payer MEDICARE, SELFPAY | PROVIDERS: PCP Family Medicine; Referring Provider Family Medicine; Visit Provider Student in an Organized Health Care Education/Training Program | DX: M23.92 Unspecified internal derangement of left knee (principal); M17.12 Unilateral primary osteoarthritis, left knee | CPT/HCPCS: 99214 ==

== ENCOUNTER 2025-01-17 03:41 | Outpatient (CLI) | payer MEDICARE, SELFPAY ==
[2025-01-17 12:46] LABS: HCT 39.2 % (36.0-46.0); HGB 13.1 g/dL (11.2-15.7); MCH 28.9 pg (27.0-33.0); MCHC 33.4 % (32.0-36.0); MCV 86 fL (80-95); MPV 9.4 fL (8.0-11.0); Platelet Count 289 10^3/uL (130-400); RBC 4.54 10^6/uL (3.93-5.22); RDW 12.9 % (11.7-14.6); RDW-SD 40.6 fL; WBC 4.97 10^3/uL (4.4-10.8)
[2025-01-17 12:53] LABS: Anion Gap 7.3 mmol/L (3-11); BUN 19 mg/dL (9-23); CO2 28.7 mmol/L (20.0-31.0); Calcium 9.6 mg/dL (8.3-10.6); Chloride 107 mmol/L (98-107); Glucose 90 mg/dL (74-106); Potassium 4.1 mmol/L (3.5-5.1); Sodium 143 mmol/L (136-145)
== END 2025-01-17 03:42 | disposition home or self-care (01) ==
LOC: LBO 03:42 → LBN 12:23
PROVIDERS: PCP Family Medicine; Visit Provider Student in an Organized Health Care Education/Training Program
DX: Z01.818 Encounter for other preprocedural examination (principal); M17.12 Unilateral primary osteoarthritis, left knee
CPT/HCPCS: 80048; 85027

== ENCOUNTER 2025-01-17 12:01 | Outpatient (CLI) | payer MEDICARE, SELFPAY ==
--- NOTE | 2025-01-17 11:15 | DI.RAD_ITS ---
Exam(s) XR KNEE LT 1V XR STANDING ALIGNMENT EXAM: XR STANDING ALIGNMENT CLINICAL HISTORY: OA L KNEE. TECHNIQUE: 2D digital imaging was performed. Six images were obtained. COMPARISON: CR LEFT KNEE 4+ VIEWS from 04/19/2014 CR RIGHT KNEE COMPLETE from 04/19/2014 CR XR HIPS BILAT W PELVIS from 12/10/2019 CR,XR XR KNEE LT 3V AP,LAT,LEX from 05/12/2021 CR XR KNEE 4 VIEW LEFT from 09/23/2023 MR MR LOWER JOINT LT WO from 02/24/2024 FINDINGS: BONES: There is a new horizontal lucency through the right symphysis pubis suspicious for an acute fracture. The hips are well maintained. The right knee is unremarkable. In the left knee, there osteophytes seen in all 3 joint compartments. The ankles are well maintained.There is no significant leg length discrepancy. SOFT TISSUE: Normal. IMPRESSION: 1. Degenerative changes of the left knee as described. 2. Horizontal lucency in the right symphysis pubis suspicious for an acute fracture. Unexpected findings DATA REPOSITORY: RADIATION DOSE DELIVERED:
== END 2025-01-17 12:02 | disposition home or self-care (01) ==
LOC: DIORS 12:01
PROVIDERS: PCP Family Medicine; Visit Provider Physician Assistant
DX: Z01.818 Encounter for other preprocedural examination (principal); M17.12 Unilateral primary osteoarthritis, left knee; R01.1 Cardiac murmur, unspecified
CPT/HCPCS: 99024; 73560; 77073

== ENCOUNTER → 2025-01-21 14:00 | Outpatient (CLI) | payer MEDICARE, SELFPAY ==
--- NOTE | 2025-01-21 14:50 | DI.RAD_ITS ---
Exam(s) XR HIP RT COMPLETE AP PELVIS EXAM: XR HIP RT COMPLETE AP PELVIS CLINICAL HISTORY: CLOSED FRACTURE RT SIDE SYMPHYSIS PUBIS, S32.591A, F/U XRAY RT KNEE. TECHNIQUE: 2D digital imaging was performed. Two views COMPARISON: CR XR HIPS BILAT W PELVIS from 12/10/2019 FINDINGS: BONES: No acute fracture is present. No bony destructive lesion is seen. JOINTS: No dislocation present. The hip joint spaces are maintained. SI joints and pubic symphysis are unremarkable. SOFT TISSUE: Normal. IMPRESSION: No acute abnormality. DATA REPOSITORY: RADIATION DOSE DELIVERED:
== END ==
LOC: DI 14:01
PROVIDERS: PCP Family Medicine; Visit Provider Family Medicine
DX: S32.591D Other specified fracture of right pubis, subsequent encounter for fracture with routine healing (principal); X58.XXXD Exposure to other specified factors, subsequent encounter
CPT/HCPCS: 73502

== ENCOUNTER → 2025-01-24 03:57 | Outpatient (CLI) | payer MEDICARE, SELFPAY ==
--- NOTE | 2025-01-24 14:30 | DI.US_ITS ---
APPROVED REPORT EXAM: Comprehensive 2D, Doppler, and color-flow Echocardiogram Patient Location: Out-Patient Installer Inspector Final: Mike Joyner RDCS (AE) Indications: Preop clearance Conclusion Normal left ventricular wall thickness and chamber size. Ejection fraction is 60%. Wall motion is normal Normal right ventricular size and function Both atria are normal in size There are no structural valvular abnormalities Mild aortic, mitral and tricuspid regurgitation Normal estimated right ventricular systolic pressure 27 mmHg Wall motion Left Ventricle The left ventricle is normal size. Left ventricular systolic function is normal. The left ventricular ejection fraction is within the normal range. There is normal left ventricular wall thickness. There is normal LV segmental wall motion. There is no ventricular septal defect visualized. LVEF is 60%. Right Ventricle The right ventricle is normal size. The right ventricular systolic function is normal. Atria The left atrium size is normal. The right atrium size is normal. The interatrial septum is intact with no evidence for an atrial septal defect. Aortic Valve Aortic valve is trileaflet. There is no aortic valvular stenosis. Mild aortic regurgitation. Mitral Valve The mitral valve is normal in structure. No evidence of mitral valve stenosis. Mild mitral regurgitation. Tricuspid Valve The tricuspid valve is normal in structure. There is no tricuspid valve stenosis. Mild tricuspid regurgitation. The RVSP is 27.4 mmHg. Pulmonic Valve The pulmonary valve is normal in structure. There is no pulmonic valvular stenosis. Mild pulmonic regurgitation. Great Vessels The aortic root is normal in size. The ascending aorta is normal in size. IVC is normal in size and collapses >50% with inspiration. Pericardium There is no pericardial effusion. 2D Dimensions IVSD d PLAX 0.75 cm F: 0.6-1.0 Ao Root d 2.74 cm F: 2.7 - 3.3 LVPW d PLAX 0.69 cm F: 0.6 - 1.0 Ao Asc Diam d 3.20 cm F: 2.3 - 3.1 LVID d PLAX 5.01 cm F: 3.8 - 5.2 LVDs 3.21 cm F: 2.2 - 3.5 LV EF Teichholz 65.4 % FS 36.02 % LV EDV (Teich) 119.0 mL LV ESV (Teich) 41.2 mL Stroke Vol Index (Teich) 41.60 M-Mode TAPSE 3.07 cm (M/F) >1.7 Auto EF LV EDV A4C 96.2 mL LV EDV A2C 97.2 mL LV EDV BP 99.7 mL LV ESV A4C 36.7 mL LV ESV A2C 34.0 mL LV ESV BP 35.1 mL LVEF(%) A4C 61.9 % LVEF(%) A2C 65.0 % LVEF(%) BP 64.8 % LV SV A4C 59.5 ml LV SV A2C 63.2 ml LV SV BP 64.6 ml LV CO A4C 3.4 L/min LV CO A2C 3.7 L/min LV CO BP 3.5 L/min HR A4C 56.34 BPM HR A2C 58.54 BPM LV EDV Index (BP) LA Volume LA Length A4C 4.8 cm LA Length A2C 4.6 cm LA Area A4C s 12.81 cm2 LA Area A2C s 11.37 cm2 LA Vol A4C A-L 29.03 mL LA Vol A2C A-L 24.02 mL LA Vol Biplane A-L 27.1 mL LA Vol/BSA A4C A-L LA Vol/BSA A2C A-L LA Vol/BSA BP A-L 14.5 mL/m2 LA Vol A4C MOD 27.2 mL LA Vol A2C MOD 22.5 mL LA Vol BP MOD 25.3 mL RA Volume RA Area A4C 10.3 cm2 RA ESV A4C (A-L) 24.8mL RA Vol/BSA A4C A-L RA Length A4C 3.6 cm RA ESV A4C (MOD) 22.5mL LV Diastology MV E' medial 0.108 (>0.07 m/s) MV E Vmax 0.79 (0.4-1.3 m/s) MV E/E' MED 7.34 (<14) MV A Vmax 0.40 (0.4-1.3 m/s) MV E' lateral 0.141 (>0.1 m/s) E/A Ratio 2.0 MV E/E' LAT 5.60 (<14) MV E' Average 0.125 m/s MV E/E'(average) 6.35 Aortic Valve AoV Vmax 1.37 m/s LVOT Vmax 1.08 m/s AoV Peak Grad 43.9 mmHg LVOT Peak Grad 4.7 mmHg AoV Area (Vmax) 2.40 cm2 LVOT VTI 0.273 m AoV VTI 0.314 m LVOT Mean Grad 2.6 mmHg AoV Mean Jesse. 0.95 m/s LVOT SV 82.76 mL AoV Mean Grad 4.1 mmHg LVOT Diam s 1.95 cm AoV Area (VTI) 2.63 cm2 AV Regurg Peak Gr. 7.50 mmHg Velocity Ratio 0.79 AR Decel Vernon 2.2m/sec2 AR DT 2027 msec AR PHT 588 msec AR Vmax 4.48 m/s Mitral Valve MV DT 193 (160-240 msec) Pulmonary Valve PV Vmax 0.80 (0.5-1.5 m/s) RVOT Vmax 0.78 m/s PV Peak Grad 2.5 mmHg RVOT Peak Gr. 2.4 mmHg PV Mean Jesse 0.57 m/s RVOT VTI 0.182 m PV Mean Grad 1.5 mmHg RVOT Mean Gr. 1.2 mmHg Tricuspid Valve RA Pressure 3.00 mmHg TR Vmax 2.47 m/s TV S' 0.15 m/s TR Peak Grad 24.4 mmHg RVSP (TR) 27.4 mmHg
== END ==
LOC: DI 03:57
PROVIDERS: PCP Family Medicine; Visit Provider Student in an Organized Health Care Education/Training Program
DX: R01.1 Cardiac murmur, unspecified (principal); I08.3 Combined rheumatic disorders of mitral, aortic and tricuspid valves
CPT/HCPCS: 93306

== ENCOUNTER 2025-01-25 08:27 | Day surgery (SDC) | payer MEDICARE, SELFPAY ==
--- NOTE | 2025-01-24 15:11 | W.ANESPRE ---
General Info Date of Service Date Performed: 01/25/25 Height: 5 ft 10.5 in Weight: 66.678 kg Body Mass Index (BMI): 20.7 Surgical Procedure: Operation Date: 01/25/25 10:55 Proposed Procedure Side Surgeon p Knee Total Arthroplasty w/OrthAlign Left Claudio Maloney MD Meds Allergies and Home Medications Allergies Allergy/AdvReac Type Severity Reaction Status Date / Time acetaminophen Allergy rash Verified 01/25/25 08:45 Home Medication ?Medication ?Instructions ?Recorded Osteoprime 1 tab PO DAILY 11/09/12 calcipotriene 0.005 % topical cream 1 applic topical DIRECTED 04/04/23 cholecalciferol (vitamin D3) 2,000 unit PO DAILY 04/04/23 ZYFLAMEND PO 01/17/25 aspirin 81 mg tablet,delayed 81 mg PO BID 30 days #60 tabs 01/25/25 release celecoxib 200 mg capsule (Celebrex) 200 mg PO BID PRN #60 caps 01/25/25 dexamethasone 4 mg tablet 4 mg PO DAILY #2 tabs 01/25/25 docusate sodium 100 mg capsule 100 mg PO BID #28 caps 01/25/25 (Colace) gabapentin 300 mg capsule 300 mg PO QHS #14 caps 01/25/25 hydromorphone 2 mg tablet 2 mg PO Q4H PRN #18 tabs 01/25/25 pantoprazole 40 mg tablet,delayed 40 mg PO DAILY #14 tabs 01/25/25 release Current Visit Medications: Current Medications Generic Name Dose Route Start Last Admin Trade Name Freq PRN Reason Stop Dose Admin Celecoxib 400 mg 01/25/25 06:00 Celecoxib 200 Mg Cap PO 01/25/25 23:59 PREOP KIM Gabapentin 300 mg 01/25/25 06:00 Gabapentin 300 Mg Cap PO 01/25/25 23:59 PREOP KIM Ringer's Solution 1,000 mls @ 80 mls/hr 01/25/25 06:00 IV 01/25/25 23:59 INFUSION KIM Cefazolin Sodium/Dextrose 2 gm in 50 mls @ 100 mls/hr 01/25/25 06:00 Ancef Duplex IVPB 01/25/25 23:59 PREOP KIM Tranexamic Acid/Sodium Chloride 1,000 mg in 100 mls @ 600 mls/hr 01/25/25 06:00 IVPB 01/25/25 23:59 PREOP KIM Sodium Chloride 0 ml 01/25/25 06:00 Normal Saline Flush 10 Ml Syr IV 01/25/25 23:59 PRN PRN Sodium Chloride 0 ml 01/25/25 06:00 Normal Saline 10 Ml Vial IJ 01/25/25 23:59 DIRECTED PRN Sterile Water 0 ml 01/25/25 06:00 Water,Injection,Sterile 10 Ml Vial IJ 01/25/25 23:59 DIRECTED PRN PFSH Active Problems Active Problems: Problem Status Onset Code Arthritis of knee, left Acute M17.12 Cramping of feet Acute R25.2 Corns and callosities Acute L84 SLAP lesion of right shoulder Acute S43.431A Right rotator cuff tear Acute M75.101 Internal derangement of left knee Acute M23.92 Pain, joint, foot, right Acute M25.571 Pain in joint, foot, left Acute M25.572 Tailor's bunion of right foot Acute M21.621 Tailor's bunion of left foot Acute M21.622 Exostosis of right foot Acute M89.8X7 Exostosis of left foot Acute M89.8X7 Chronic rhinitis Acute J31.0 Screen for colon cancer Acute Z12.11 Primary osteoarthritis of both first carpometacarpal joints Acute 06/04/17 M18.0 Tendinitis of left rotator cuff Acute 01/18/15 M75.82 Tubular adenoma of colon Acute 03/03/17 D12.6 Medical History Medical History History of COVID-19 Insect bite Lactose intolerance Pain in right hand Menopause present Left rotator cuff tear Pain, joint, knee, left Heart murmur Localized skin eruption Paresthesia Pain Scoliosis Disorder of soft tissue of lower extremity Pain in thoracic spine Osteoarthritis Senile hyperkeratosis Hypertrophic condition of skin Psoriasis Diverticula of intestine Hearing loss Polyneuropathy Nerve root disorder Nicotine dependence Benign neoplasm of colon Knee pain, bilateral Peripheral neuropathy Leucopenia Rotator cuff syndrome of left shoulder Menopausal syndrome Davidson of toe Heart murmur, systolic PCP had ECHO in 2016. Pt was reminded that due to mild TR and MR per anesthesia will request updated ECHO for any upcoming procedures (01/08/23) Psoriasiform dermatitis Shoulder pain, right Back pain Radicular syndrome of lower limbs Paresthesia of hand, bilateral tubulovillous adenoma irregular heart beat diverticulosis Small bowel obstruction Osteopenia Surgical History Surgical History Hx of appendectomy History of colonoscopy Tonsillectomy Colonoscopy - MAC (03/03/17) Colonoscopy - IV Sedation (~2010) tubulovillous adenoma Appendectomy Tobacco Smoking/Tobacco Use Status: Former Tobacco Use Passive smoking exposure: Yes Alcohol Alcohol Intake: current Alcohol intake frequency: a few times a month Alcohol type: wine Substance Use Substance use: Never Substance use type: does not use Vital Signs and Lab Results Vital Signs Comment Vital Signs Comment:: Temp Pulse Resp BP Pulse Ox 36.8 C 67 14 97/75 L 100 01/25/25 08:47 01/25/25 08:47 01/25/25 08:47 01/25/25 08:47 01/25/25 08:47 Lab Results Complete Blood Count: WBC, (4.4-10.8) 4.97 10^3/uL 01/17/25, 12:05 RBC, (3.93-5.22) 4.54 10^6/uL 01/17/25, 12:05 Hgb, (11.2-15.7) 13.1 g/dL 01/17/25, 12:05 Hct, (36.0-46.0) 39.2 % 01/17/25, 12:05 Plt Count, (130-400) 289 10^3/uL 01/17/25, 12:05 Complete Metabolic Panel: Sodium, (136-145) 143 mmol/L 01/17/25, 12:05 Potassium, (3.5-5.1) 4.1 mmol/L 01/17/25, 12:05 Chloride, (98-107) 107 mmol/L 01/17/25, 12:05 Carbon Dioxide, (20.0-31.0) 28.7 mmol/L 01/17/25, 12:05 BUN, (9-23) 19 mg/dL 01/17/25, 12:05 Creatinine, (0.55-1.02) 0.84 mg/dL 01/17/25, 12:05 Est GFR (CKD-EPI 2020), (mL/min/1.73m2) 67.49 01/17/25, 12:05 Calcium, (8.3-10.6) 9.6 mg/dL 01/17/25, 12:05 Glucose, (74-106) 90 mg/dL 01/17/25, 12:05 Imaging and Studies Imaging and Studies Study information below may be from another EMR and interpreted by another provider. Please see original notes in EMR for more complete details. Echocardiogram Summary: Date 01/24/25 Conclusion Normal left ventricular wall thickness and chamber size. Ejection fraction is 60%. Wall motion is normal Normal right ventricular size and function Both atria are normal in size There are no structural valvular abnormalities Mild aortic, mitral and tricuspid regurgitation Normal estimated right ventricular systolic pressure 27 mmHg Anesthesia Assessment and Plan Anesthesia History Personal History: No History of Anesthesia Complications Family History: No Family History of Anesthesia Complications Exercise Tolerance Exercise Tolerance: Metabolic Equivalents>4 Pertinent Negatives Pertinent Negatives: No Symptoms of GERD, No Major Cardiovascular Symptoms or Complaints, No Major Pulmonary Symptoms or Complaints and No History of CVA/TIA Cardiac & Pulmonary Exam Cardiac Exam: Normal S1/S2 Heart Sounds and Heart Murmur Present (slight murmur) Pulmonary Exam: Clear Bilateral Breath Sounds Implantable Cardiac Device Does patient have a Pacemaker or an ICD?: No Airway Exam Known Difficult Airway: No Mallampati Class: 2 Mouth Opening: Normal (> 3cm) Thyromental Distance: Less than 3 cm Neck Range of Motion: Full ROM Neck Circumference: Normal Teeth Condition: Normal Dentition ASA Classification ASA Score: ASA 2 Emergency Case?: No NPO Status NPO Status: NPO Clears >2 hours, Solids >8 hours Anesthesia Plan Resuscitation Status: Full Code Anesthesia Technique: Spinal Anesthesia Airway Planned: Natural Airway Pain Management: Surgeon and patient request nerve block Monitors Used: Standard Monitors Preoperative Comments:: Lumbar Xray reviewed from 2019 with space narrowing noted in L3-4 and L4-5
[2025-01-25] VITALS (29 sets, daily range): BP systolic 97–138; BP diastolic 54–83; PULSE 53–83; RESP 9–20; TEMP 35.9–36.8; TEMPC 36.4; O2SAT 95–100; BMI 20.7
--- NOTE | 2025-01-25 07:17 | W.PM.DSUDISC ---
Date of service: 01/25/25 Discharge Plan Disposition Patient Disposition: Home Condition: Good Discharge Details Reason For Visit: Left knee DJD Attending Provider: Claudio Maloney Primary Care Provider: Johana Orona V Home Meds and New Rx's Prescriptions: New celecoxib [Celebrex] 200 mg capsule 200 mg PO BID PRNQty: 60 0RF Rx Instructions: Take one tablet twice daily for pain and inflammation aspirin 81 mg tablet,delayed release (DR/EC) 81 mg PO BID 30 Days Qty: 60 0RF hydromorphone 2 mg tablet 2 mg PO Q4H PRNQty: 18 0RF Rx Instructions: Take one tablet up to every 4 hours as needed for severe postoperative pain pantoprazole 40 mg tablet,delayed release (DR/EC) 40 mg PO DAILY Qty: 14 0RF Rx Instructions: Take one tablet once daily dexamethasone 4 mg tablet 4 mg PO DAILY Qty: 2 0RF Rx Instructions: Take one tablet once daily for two days docusate sodium [Colace] 100 mg capsule 100 mg PO BID Qty: 28 0RF gabapentin 300 mg capsule 300 mg PO QHS Qty: 14 0RF Rx Instructions: Take one tablet at bedtime Continued ZYFLAMEND PO osteoprime 1 tab PO DAILY calcipotriene 0.005 % cream 1 applic topical DIRECTED Rx Instructions: rub in gently and completely cholecalciferol (vitamin D3) 2,000 unit PO DAILY Discharge Instructions Additional Instructions: Total Knee Discharge Instructions Activity: The most important activity is to walk and to work on gentle motion (both flexion and extension). You should try to take short walks a few times a day. It is important that when resting you work on keeping the knee straight. Avoid putting a pillow behind the knee as this will encourage flexion. Work on range of motion exercises as provided by Physical Therapy. - Start outpatient physical therapy within 2 weeks. - You should wear the ANGELITO hose on both legs for 2 weeks. You may remove these at night. You may also use any compression sock in place of the ANGELITO hose. - Utilize [employer] to review exercises, see videos on exercises and obtain basic information pertaining to your surgery and your recovery. Dressing: Remove the Diogenes wrap by 2 days after your surgery and put on the ANGELITO stocking given to you from the hospital. Keep the surgical dressing (underneath the DIOGENES wrap) in place for at least one week. After the first week it may be removed and replaced with light gauze and tape or nothing. The wound and dressing may get wet after 3 days but avoid soaking the dressing or otherwise it will need to be changed. Many people prefer covering the dressing with cling wrap (saran wrap) to minimize it from getting soaked. If it gets wet, just pat dry. If it starts to peel off then it will need to be changed. Medications: - You should take anti-inflammatory Celebrex as your primary pain control medications. If the Celebrex is too expensive or not covered, please call the office for another alternative (Advil/Ibuprofen or Naproxen/Aleve) - You have been prescribed a stronger pain medication Hydromorphone for breakthrough pain, take as needed as prescribed. - You have also been prescribed a stomach acid reduction agent Pantoprozole to help reduce stomach acid and reflux. - You have been prescribed Gabapentin to take at night for restlessness and nerve pain. - You will be taking Aspirin 81mg twice a day for DVT prevention unless instructed otherwise. - You have also been prescribed Decadron to take to control post-operative nausea and pain. You will start this tomorrow. - If you have constipation you should take Colace (which has been prescribed) or Miralax (which is available [id number]). It takes most people 3-4 days to have a bowel movement. Follow-up: 2 weeks If you have any acute concerns or questions, please do not hesitate to contact the office at [phone]. You may contact Dr. Maloney with any questions after hours through the hospital at [phone] or on his cell phone at [phone]. Stand Alone Forms: Portal Information Referrals: Claudio Maloney MD [ [facility] STAFF PHYSICIAN, Orthopaedic Surgical] Equipment/Supplies: Walker Activity:: Elevate Remove Dressings/Wound Care:: Do Not Remove Shower/Bathe:: Cover Diet:: As Tolerated Discharge Orders Discharge Orders: Discharge Order (Routine); Ordered 01/25/25 Ordered By: Dalila Tamayo
[2025-01-25] MEDS: Gabapentin 300 MG CAP PO (09:06)
[2025-01-25] MEDS: Celecoxib 200 MG CAP 400 MG PO (09:06)
[2025-01-25] MEDS: Lactated Ringers 1,000 ML 80 ML IV (09:22)
[2025-01-25] MEDS: ceFAZolin 2 GM/50 ML BAG IVPB ×2 (10:20→10:35)
[2025-01-25] MEDS: TRANEXAMIC ACID/SOD. CHL. 1,000 MG/100 ML BAG 600 MG IVPB (10:25)
[2025-01-25] MEDS: ROPIvacaine/EPI/CLONIDINE/KET 50 ML SYRINGE IJ (10:31)
--- NOTE | 2025-01-25 10:50 | W.ANESNERVE ---
Nerve Block Single Injection Procedure Date and Time Date Performed: 01/25/25 Procedure Start: 09:31 Location Where Procedure Performed Procedure Location: Day Surgery Unit Reason Performed: Postoperative Analgesia Requesting Provider: Claudio Maloney Timeout Performed Timeout Performed: Yes Monitoring Used ECG, Blood Pressure, SpO2 and See EMR for corresponding vital signs Sterility Sterility: Hand Hygiene, Surgical Cap, Surgical Mask, Sterile Gloves and Chlorhexidine Sedation Given During Procedure Sedation Given (Indicate Dose Given): Versed IV Dose:: 2mg Patient Mental Status Patient Mental Status: Sedate with meaningful communication Nerve Block 1st Nerve Block: Laterality: Left Block Type: Adductor Canal Ultrasound Image Saved?: Yes Needle / Catheter Used: 100mm SonoPlex II Local Anesthetic Bolus (Indicate Dose Given): Lidocaine used for local infiltration of skin, Bupivacaine 0.25% Dose:: 10ml and Exparel Dose:: 10ml Additives (Indicate Dose Given): None Ultrasound: Sterile probe cover and gel used Nerve Stimulator: Supplement to Ultrasound use Paresthesia: None Procedure Tolerated: No Complications and Patient tolerated well Procedure Outcome: Successful Procedure Comment: Anterior Femoral cutaneous nerved localized on the way out Performed By: Leny Gracia Supervised By: Danay Roland
[2025-01-25] MEDS: fentaNYL 100 MCG/2 ML VIAL IVP ×3 (11:58→12:22)
--- NOTE | 2025-01-25 12:11 | W.ANESPOSTOP ---
Postoperative Evaluation Date, Time and Location Date Performed: 01/25/25 Time Performed: 12:11 Patient Location: PACU Vital Signs Most Recent Imported Vital Signs: Most Recent Vital Signs Temp Pulse Resp BP Pulse Ox 36.2 C L 60 15 122/69 96 01/25/25 11:48 01/25/25 09:22 01/25/25 09:22 01/25/25 09:22 01/25/25 09:22 Most Recent Manually Entered Vital Signs: Adult Blood Pressure: 122/69 Heart Rate: 60 Respirations: 15 Oxygen Saturation (%): 96 Temperature (C): 36.4 C Pain Score (0-10 Scale): 3 Pain Score Most Recent Pain Score: Most Recent Pain Score Pain Level 9 01/25/25 11:58 Assessment Mental Status: Awake (Alert & Oriented to Patient Baseline) Airway and Respiratory Function: Patent airway with normal (patient baseline) respiratory exam Cardiovascular Function: Hemodynamically Stable Hydration Status: Adequately Hydrated Nausea & Vomiting: No Nausea or Vomiting Pain: Pain is tolerable per patient (3/10) Peripheral Nerve Block: Regional nerve block not resolved at time of post operative discharge
--- NOTE | 2025-01-25 12:58 | W.PM.OP ---
Operative Note Operative Note PRE-OP DIAGNOSIS: Left Knee Arthritis POST-OP DIAGNOSIS: same PROCEDURE: Left Total Knee Replacement with Intraoperative Navigation SURGEON: Claudio Maloney TILE LAYER HELPER: Dalila Tamayo ANESTHESIA TYPE: Spinal Refer to Anesthesia Record ESTIMATED BLOOD LOSS: 50 PATHOLOGY: none sent TOURNIQUET TIME: 0 COMPLICATIONS: None Patient was transported to: PACU Patient's condition: stable Implants: 1. Depuy Attune Cementless Cruciate Retaining Femoral Component, Size 8 2. Depuy Attune Cementless Fixed Bearing Tibial Component, Size 7 3. Depuy Attune 8x8mm CR/FB Poly Indications: I have seen Pat in clinic for symptoms of LEFT knee arthritis, confirmed with radiographic findings. Pat has exhausted nonoperative methods and was having significant limitations in daily function and desired better function and less pain. I discussed the technical details of a knee replacement. I explained the risks of the procedure to include, but not limited to, bleeding, infection, pain, stiffness, fracture, damage to nerves and vessels, damage to muscles and tendons, loosening, need for repeat procedure, blood clot and cardiopulmonary demise. Despite these risks, she elected to proceed. Findings: There was significant signs of arthritis throughout the knee mostly involving the lateral femur and tibia. Procedure Description: Pat was greeted in the preoperative holding area where the correct side was identified and marked. The consent was reviewed with the patient and signed. The history and physical was updated. All questions were answered. Preoperative mediacations were administered: Acetaminophen 1000mg, Celebrex 400mg, and Gabapentin 300mg. An adductor canal block was then administered by the anesthesia team in the DSU. Pat was taken back to the operating room. A spinal anesthestic was then administered. The patient was placed into the supine position on the operating room table. Posts were placed for positioning during the procedure. All bony prominences were well padded. Prophylactic antibiotics in the form of Cefazolin were administered. 1g of Tranxemic Acid was given intravenously within 30 minutes of incision. The left leg was then prepped with Chloraprep and draped in a standard fashion with impervious stockinette. A second prep with Chloraprep was performed prior to application of Iodine impregnated skin protection. A timeout to confirm correct identity, side and site, procedure, allergies, anesthesia, and medical concerns was performed. With the knee in some flexion, a midline incision was made overlying the knee. Full thickness skin flaps were raised once the extensor mechanism was encountered. These were raised medially and laterally. Any bleeding was controlled with electrocautery. Once the extensor mechanism was fully exposed, a medial parapatellar arthrotomy was performed in a flexed position. All bleeding from the arthrotomy and the geniculate arteries was coagulated. A medial subperiosteal peel was performed with electrocautery to the midcoronal plane. The fat pad was removed while keeping the patellar tendon protected. The anterior distal femur synovium was removed for later visualization. The ACL and PCL were resected and the anterior horn of the lateral meniscus was transected. The knee was then flexed with the patella everted. There was some hypoplasia of the lateral femoral condyle and any remnant cartilage of the medial femoral condyle was removed for appropriate thickness. A single starting pin was then placed 1cm anterior to the PCL insertion and the notch in the direction of the femoral head. The OrthoAlign device was applied over the pin. It was oriented to be in line with the epicondylar axis and the trochlear groove. It was then pinned into place. The navigation computer was then turned on and calibrated. The distal femur cut was set at 0 degrees varus and 3.5 degrees flexion. The distal femur cutting guide then was positioned for a 9mm cut. The distal femur was cut with an oscillating saw while protecting the soft tissues. The tibia was then addressed. The OrthoAlign device was placed over the tibial tubercle and medial tibia and secured into position. Once again, OrthoAlign was calibrated and then set for a 0.5 degree varus cut and 5.5 degrees of posterior slope. With this locked into position, the cut thickness stylus was used to assess cut thickness. The lateral side, most involved side, was set for a 7mm cut, corresponding to 9mm medially. This was then held in position and pinned into place with 2 additional pins and a cross pin for stability. The medial and lateral collateral ligaments were protected and the cut was performed. With this completed, it was assessed and noted to be of appropriate dimensions. The guide and OrthoAlign was removed. A spacer block was inserted and the knee was brought into extension to ensure enough space was present. . The Orthoalign gap balancing device was then placed in extension. This was used to ensure that the ligaments were properly balanced with up to 2 to 3 mm laxity laterally compared medially. The extension gap was measured as 20mm. The knee was then brought into 90 degrees of flexion and the ligament biochemistry professor was once again placed. Under the same amount of force the flexion gap was measured. The Attune specific jig was placed and the flexion gap was made to match the extension gap. The femur was then sized as a size 8. The 4-in-1 cutting guide was the placed. An juan wing was used to confirm appropriate position of the anterior cut to avoid notching. This cutting guide was ensured to be flush on the cut surface and then pinned into place with headed pins. While protecting the soft tissues, quad tendon, and collateral ligaments, the anterior and posterior cuts were performed with a saw. The anterior cut did have a very small notch which was smoothed with a rongeur and a rasp. Then, the central two pins were removed and the posterior and anterior chamfers were cut next. The notch-cutting guide was placed. This was pinned to lateralize the femoral component as much as possible while keeping it flush on the cut surface. This was then pinned into position. A saw was used to make the notch cut. A rasp smoothed the cut surfaces. The medial and lateral menisci were removed. A trial femoral component was then inserted, impacted down to the cut surfaces, and the lug holes were drilled. A provisional trial tibial component was placed and the knee was brought through range of motion. There was noted to be excellent extension and flexion. There was no significant instability. The patella was tracking without thumbs. A size 8mm polyethylene component provided the best range of motion and stability with less than 2mm gapping with medial and lateral stress and full extension without significant hyperextension. The tibial cut surface was fully exposed. The tibia was then sized as a 7. The tibia had been previously marked during trialing to correspond to the center of the tibial component to help with rotation. The trial was aligned to this renetta, approximately rotated to the medial 1/3rd of the tibial tubercle. The trial was pinned into place. The tibia was prepared with a reamer and a keel punch and lug holes. The trial components were removed. The final components were opened on the back table. The periosteal and capsular tissues, especially posteriorly, around the knee were then systematically injected with a periarticular cocktail consisting of 246mg of Ropivacaine, 0.5mg of Epinephrine, 0.08mg of Clonidine, and 30mg of Ketorolac, diluted to 100cc. Then, the knee components were placed. Starting with the tibial component, the tibia was subluxed anteriorly and the lug holes of the component were lined up. The tibia was then impacted with an impactor and mallet until the tibial component was in contact with the tibia. Then, the femoral component was inserted. The lug holes were aligned and the component was impacted into position. The final polyethylene component was inserted. The knee was irrigated with Surgiphor Betadine solution. This was allowed to sit in the knee for 3 minutes and then it was thoroughly irrigated out with saline. The knee was then taken through range of motion. The patella was tracking with a no-thumbs technique. A complete synovectomy of the patella was performed. Any prominence to the lateral facet was resected with a rongeur. The capsule was then reapproximated with a No. 1 Vicryl at multiple locations. The capsule was finally closed with a No. 2 Stratafix, barbed suture. Deep tissues were then reapproximated with 0 Vicryl and 2-0 Vicryl. The skin was closed with a running 3-0 Monocryl in a subcuticular fashion. This was reinforced with skin glue. A Mepilex silver dressing was applied along with a [id number] PENNIE wrap. A CryoCuff was applied. Pat was transferred to the hospital bed without difficulty an suffering no apparent complication. Pat has a good prognosis. Physical therapy will start today and without restrictions, weight-bearing as tolerated. Aspirin 81mg BID will be used for DVT prophylaxis. Date of Procedure: 01/25/25
[2025-01-25] MEDS: HYDROmorphone 2 MG TAB PO (12:59)
[2025-01-25] MEDS: Ondansetron 4 MG/2 ML VIAL IVP (14:26)
[2025-01-25] MEDS: Tranexamic Acid 650 MG TAB 1300 MG PO (14:52)
--- NOTE | 2025-01-25 14:55 | IN_ITS ---
PT Notes Visit Reasons: Left knee DJD ? Physical Therapy Day Surgery Initial Evaluation Date: 01/25/2025 Referring Doctor: Dalila Tamayo PHARMACEUTICAL WORKER PT Orders: PT CONSULT: Day surgery Eval Precautions: Standard, fall, WBAT Patient Profile/Admitting Diagnosis: Patient is a 69-year-old female who presents status post elective left TKA under spinal anesthesia With adductor nerve block by Dr. Maloney on 01/25/2025. Postop complicated by nausea and vomiting. PMHX: Arthritis of knee, left (Acute) Cramping of feet (Acute) Corns and callosities (Acute) SLAP lesion of right shoulder (Acute) Right rotator cuff tear (Acute) Internal derangement of left knee (Acute) DEPO MEDROL 12/19/23Pain, joint, foot, right (Acute) Pain in joint, foot, left (Acute) Tailor's bunion of right foot (Acute) Tailor's bunion of left foot (Acute) Exostosis of right foot (Acute) Exostosis of left foot (Acute) Chronic rhinitis (Acute) Screen for colon cancer (Acute) Primary osteoarthritis of both first carpometacarpal joints (Acute 06/04/17) Tendinitis of left rotator cuff (Acute 01/18/15) Tubular adenoma of colon (Acute 03/03/17) 12/2022 Medical History History of COVID-19 Insect bite Lactose intolerance Pain in right hand Menopause present Left rotator cuff tear Pain, joint, knee, left Heart murmur Localized skin eruption Paresthesia Pain Scoliosis Disorder of soft tissue of lower extremity Pain in thoracic spine Osteoarthritis Senile hyperkeratosis Hypertrophic condition of skin Psoriasis Diverticula of intestine Hearing loss Polyneuropathy Nerve root disorder Nicotine dependence Benign neoplasm of colon Knee pain, bilateral Peripheral neuropathy Leucopenia Rotator cuff syndrome of left shoulder Menopausal syndrome [place] of toe Heart murmur, systolic PCP had ECHO in 2015. Pt was reminded that due to mild TR and MR per anesthesia will request updated ECHO for any upcoming procedures (01/08/23)Psoriasiform dermatitis Shoulder pain, right Back pain Radicular syndrome of lower limbs Paresthesia of hand, bilateral tubulovillous adenoma irregular heart beat diverticulosis Small bowel obstruction Osteopenia Surgical History History of colonoscopy Tonsillectomy Colonoscopy - MAC (03/03/17) Colonoscopy - IV Sedation (~2010) tubulovillous adenomaAppendectomy Social History/Home Situation: Pt lives in a single-family home with her . Pt has 3 steps to enter with no railing, and a flight of stairs with railing on the left inside the home to reach the bedroom and bathroom. Prior to surgery patient was independent with ADLs ambulation. Patient active with dance and a consistent gym routine. Equipment Owned/DME: crutches Subjective: Initially patient reported feeling well enough to attempt ambulation despite pain 5/10 Objective: General Observation: Pt semireclined on stretcher with Cryo/Cuff to left knee. in room Mental Status: alert and oriented x4 cooperative, able to follow instructions agreeable to participate in evaluation Pain: 5/10 while laying in bed, but lowered throughout the session with movement. Vitals: MC=913/71 HR=62 SPO2=97% on RA seated stand; BP 117/68 HR 71 ROM: [] Right Upper Extremity:? WFL Left Upper Extremity: WFL Right Lower Extremity: WFL Left Lower Extremity: WFL excepts resting in -10 degrees knee extension, active knee extension -5 degrees and 105 degrees knee flexion Strength: Right Upper Extremity: Grossly 5/5 Left Upper Extremity: Grossly 5/5 Right Lower Extremity: Grossly 5/5 Left Lower Extremity: Grossly 4/5 excepts knee flexion 3-/5 knee extension 3/5 hip flexion 3/5 , fair quad set, slight lag with SLR in shortened range Sensation: intact Bed Mobility/Transfers: Supine to sit supervision Sit to stand supervision Stand to sit supervision Bed to chair CGA with FWW Gait: Pt ambulated 60 feet with FWW CGA. Pt needed min verbal cueing to keep the walker further In front of her Pt had a step to pattern with slow blaise. Decreased in step length, step height, early heel off, decreased knee flexion through swing phase on left. Stairs: Pt ambulated 2 6inch steps and 3 4inch steps with railing on left and cane in the right.CGA PT provided verbal cueing for foot placement and sequence. Pt had a step to pattern with increase in time for completion and decreased dorsi flexion and hip flexion on the left side causing her to catch her toes on the step. Balance: Static Sitting: Normal Dynamic Sitting: Normal Static Standing: fair Dynamic Standing: Fair w/one UE support Special Tests: Mobility Limitations Standardized Measure [facility] 6 clicks Basic Mobility Inpatient Short Form: Raw Score: 22? CMS Score: 20.91% deficit Informed Consent/Education:? Patient instructed in purpose of PT consult.? Packet containing [] exercise protocol has been given to patient.? Education and training on initial set of exercises that can be done at home have been completed with patient. Therapeutic activity 74792: Ambulation: Pt ambulated 55 feet w/crutches supervision. Pt needed verbal cueing for straightening Left knee during initial contact, and crutch placement. Stairs: Pt ambulated 2 6inch steps and 3 4inch steps with railing on the left and crutch on the right side. PT provided mild verbal cueing for foot placement and sequence. TherEX, [id number] Glute sets: 1setx 5reps Quad sets: 3 [id number] with 5-second hold Angle pumps: [id number] Heel slides: [id number] Straight leg raise: 1set x5 reps initiated with quad set Knee extension with roll at ankle Seated knee flexion 1 set x 5 reps with 5-second hold Assessment: Pat is a 69-year-old female presenting status post elective left TKA postop complicated by episodes of nausea and vomiting requiring use of Zofran. Patient provided with 25-minute rest After initial episode of nausea. Patient was reapproached to continue with session. Upon standing patient developed nausea and vomiting x 1 approximately 100 cc of liquid nurse was present. After vomiting, Pt was able to ambulate FWW with supervision, PT monitored pain a nausea, both reported as decreasing. Pt completed the stairs x 2. Then pt reported needing to sit, due to sensation of nausea. Patient with second episode of vomiting with nurse present. in to assess patient. Pt was offered to be wheeled back to the room which. Pt declined stating she felt better and wanted to walk. Pt was provided crutches and ambulated back to the room. Pt demonstrated stability with crutches with initial cueing for crutch placement. Pt had an increase in blaise step height and step length. patient presents with clinical signs and symptoms consistent with current/admitting diagnoses that have resulted to mobility limitations, gait instability, generalized weakness, and impairment of motor control as demonstrated by the following impairment level findings: 1.? Decreased strength to left knee major muscle groups 2.? Impaired standing balance 3.? Limitation of joint range of motion in left knee 4. Pain in left knee 5. Decreased activity tolerance Impairments are contributing to the following functional limitations: 1.? Inability to safely ambulate without assistive device 2.? Increase completion time for mobility ADL performance 3.? Increased fall risk 4. Difficulty performing stairs safely Patient is assessed as a moderate complexity based on the following: History: 69-year-old female with impairment level findings, functional limitations, and past medical history as indicated above Examination: Demonstrable impairment in strength, balance, and mobility level with underlying impairments and functional limitations as documented above Presentation: stable but evolving Decision Making: moderate Goals: N/A.? PT evaluation and 1-2 treatment sessions only for functional mobility training using recommended AD and for HEP instruction. Plan of Care/Treatment Plan: N/A.? PT evaluation and 1-2 treatment session only for functional mobility training using recommended AD and for HEP instruction. DISCHARGE RECOMMENDATIONS: Home with HEP until follow up appointment and outpt PT post follow up appointment. TREATMENT CODE/TIME: 27436, [id number]/1:10-1:43pm, 2:10-2:52pm Thank you for the opportunity to participate in the care of this patient. Written by: FIFI Turner Supervised by: Vee Ma PT ? [facility]
== END 2025-01-25 15:14 | disposition home or self-care (01) ==
PROVIDERS: PCP Family Medicine; Visit Provider Student in an Organized Health Care Education/Training Program
PROC: (CPT 27447; principal; 2025-01-25 10:45)
DX: M17.12 Unilateral primary osteoarthritis, left knee (principal); G89.18 Other acute postprocedural pain; M25.562 Pain in left knee
CPT/HCPCS: 20985; 27447; 64447; 97110; 97162; 97530; C1776; J0665; J0666; J0690; J1100; J2003; J2250; J2371; J2401; J2405; J2704; J3010

== ENCOUNTER 2025-02-07 13:39 | Outpatient (CLI) | payer MEDICARE, SELFPAY ==
--- NOTE | 2025-02-07 11:15 | DI.RAD_ITS ---
Exam(s) XR KNEE LT 1V XR STANDING ALIGNMENT EXAM: XR STANDING ALIGNMENT and XR knee LT 1 V CLINICAL HISTORY: 1ST POST OP S/P L TKA. TECHNIQUE: 2D digital imaging was performed. Five images were obtained. COMPARISON: CR XR STANDING ALIGNMENT from 01/17/2025 CR XR KNEE LT 1V from 01/17/2025 FINDINGS: BONES: The hips are well maintained. In the right knee there is mild narrowing of the medial femoral tibial joint. In the left knee, there is a left total knee arthroplasty. The orthopedic hardware appears in good position. There are no suspicious lucencies around the hardware. The ankles are well maintained.There is no significant leg length discrepancy. SOFT TISSUE: Normal. IMPRESSION: Unremarkable left total knee arthroplasty. DATA REPOSITORY: RADIATION DOSE DELIVERED:
== END 2025-02-07 13:40 | disposition home or self-care (01) ==
LOC: DIORS 13:39
PROVIDERS: PCP Family Medicine; Referring Provider Family Medicine; Visit Provider Student in an Organized Health Care Education/Training Program
DX: Z47.1 Aftercare following joint replacement surgery (principal); Z96.652 Presence of left artificial knee joint
CPT/HCPCS: 99024; 73560; 77073